=== PATIENT | female | born 1980 | race Caucasian/White ===

== ENCOUNTER 2018-10-22 20:23 | Emergency (ER) | payer OTHER, MEDICAID, SELFPAY ==
--- NOTE | 2018-10-22 20:25 | DI.RAD.S_ITS ---
PROCEDURE: XR ACUTE ABDOMEN SERIES INDICATIONS: Abdominal pain, cough, N/V, fever/chills TECHNIQUE: One view chest and two views of the abdomen were acquired. COMPARISON: None. FINDINGS: Surgical changes and devices: None. Chest: Lungs are clear. Heart size is normal. No pleural effusions. No pneumoperitoneum. Abdomen: Bowel gas pattern is normal. No suspicious calcifications. Visualized solid organ contours appear normal. Bones: No suspicious bony lesions. IMPRESSION: Nonspecific bowel gas pattern, no pneumonia found. Dictated by: Avinash Umaña M.D. on 10/22/2018 at 21:53 Approved by: Avinash Umaña M.D. on 10/22/2018 at 21:53
[2018-10-22 20:32] VITALS: BP 131/89; PULSE 105; RESP 19; TEMP 37.9; O2SAT 100; BMI 20.8
--- NOTE | 2018-10-22 20:40 | ED.NAVMDI ---
HPI - Nausea/Vomiting/Diarrhea General Chief complaint: Nausea/Vomiting/Diarrhea Stated complaint: Nausea, Vomiting Time Seen by Provider: 10/22/18 20:23 Source: patient and EMS Mode of arrival: EMS Limitations: no limitations History of Present Illness HPI Narrative: A 37-year-old female, nonsmoker presents by EMS for evaluation of nausea and vomiting over the course of the day. She has a history of type 1 diabetes and chronic kidney disease. She denies any change in her diet or diabetic regimen. She denies any fever or chills. She denies any abdominal pain. She denies exposure to bad food, recent antibiotics or international travel. She is not dizzy nor weak or lightheaded. She is relatively new to the area and majority of medical care has been performed up in [place] complaint: nausea and vomiting Onset (ago): hour(s) Description of Vomiting: food contents Description of Diarrhea: none Associated Abdominal Pain: No Relieving factors: none Exacerbating factors: none Related Data Previous Rx's Medication Instructions Recorded ondansetron 4 mg PO TID-QID PRN #10 tab 10/23/18 promethazine 25 mg [place] Q6H PRN #12 each 10/23/18 Allergies Allergy/AdvReac Type Severity Reaction Status Date / Time No Known Drug Allergies Allergy Verified 10/22/18 20:39 Review of Systems Review of Systems All systems reviewed & are unremarkable except as noted in HPI and below Constitutional Denies chills, Denies fever(s), Denies lethargy and Denies weakness Eyes Denies change in vision, Denies eye discharge, Denies irritation and Denies loss of vision ENT Ears, Nose, Mouth, and Throat: Denies change in voice, Denies neck pain and Denies sore throat Cardiovascular Denies chest pain, Denies irregular heart rhythm, Denies lightheadedness, Denies palpitations, Denies dyspnea, Denies dyspnea on exertion and Denies orthopnea Respiratory Denies cough, Denies dyspnea, Denies dyspnea on exertion and Denies wheezing Gastrointestinal Gastrointestinal: Denies abdominal pain, Denies change in bowel habits, Denies diarrhea, Reports nausea and Reports vomiting Genitourinary Denies hematuria, Denies flank pain, Denies urinary incontinence and Denies urinary urgency Musculoskeletal Denies neck pain Integumentary/Breasts Denies pruritus, Denies erythema, Denies rash and Denies wounds Neurologic Denies confusion, Denies loss of vision and Denies weakness Psychiatric Denies anxiety, Denies confusion, Denies depression, Denies homicidal ideation and Denies suicidal ideation Endocrine Denies palpitations Hematologic/Lymphatic Denies easy bruising Allergic/Immunologic Denies wheezing [facility] Social History Smoking Status: Current every day smoker Exam Narrative Exam Narrative: GENERAL: This is a well-nourished, well-developed patient, in mild distress, actively vomiting HEAD: Atraumatic. Normocephalic. No temporal or scalp tenderness. EYES: Pupils equal round and reactive. Extraocular motions intact. No scleral icterus. No injection or drainage. ENT: Nose without bleeding, purulent drainage or septal hematoma. Throat without erythema, tonsillar hypertrophy or exudate. Uvula midline. Airway patent. NECK: Trachea midline. No JVD or lymphadenopathy. Supple, nontender, no meningeal signs. CARDIOVASCULAR: Regular rate and rhythm without murmurs, gallops, or rubs. RESPIRATORY: Clear to auscultation. Breath sounds equal bilaterally. No wheezes, rales, or rhonchi. GASTROINTESTINAL: Abdomen soft, non-tender, nondistended. No hepato-splenomegaly, or palpable masses. No guarding. EXTREMITIES: No clubbing, cyanosis, or edema. No joint tenderness, effusion, or edema noted. BACK: Nontender without deformity or crepitance. No flank tenderness. NEURO: AOx3. SKIN: No rash or erythema. Initial Vital Signs Initial Vital Signs: Vital Signs Temperature 100.3 F H 10/22/18 20:32 Pulse Rate 105 H 10/22/18 20:32 Respiratory Rate 19 10/22/18 20:32 Blood Pressure 131/89 10/22/18 20:32 Pulse Oximetry 100 10/22/18 20:32 Course Orders Ordered: ED Orders 10/22/18 22:08 Urine Microscopic Stat Discontinued Medications Sodium Chloride (Normal Saline 0.9%) 1,000 mls @ 1,000 mls/hr IV BOLUS ONE Stop: 10/22/18 21:22 Last Infusion: 10/22/18 23:02 Dose: 0 mls/hr Admin: 10/22/18 21:22 Dose: 1,000 mls/hr Sodium Chloride (Normal Saline 0.9%) 1,000 mls @ 1,000 mls/hr IV BOLUS ONE Stop: 10/23/18 00:02 Last Infusion: 10/23/18 00:23 Dose: 0 mls/hr Admin: 10/22/18 23:04 Dose: 1,000 mls/hr Metoclopramide HCl (Reglan) 10 mg IV NOW ONE Stop: 10/23/18 01:04 Last Admin: 10/23/18 01:13 Dose: 10 mg Ondansetron HCl (Zofran Odt Prepack) 1 bottle MISC SEEINSTR ONE Stop: 10/23/18 01:45 Last Admin: 10/23/18 01:49 Dose: 1 bottle Reevaluation(s) Reevaluation #1: Patient experiencing some improvement after above-stated therapies. By discharge she is feeling much better Reevaluation #2: Records obtained from [place] noting a baseline creatinine of 3.6. Vital Signs - 8 hr 10/22/18 22:35 10/22/18 23:00 10/23/18 01:56 Pulse Rate 97 H 106 H 94 H Respiratory Rate 12 12 17 Blood Pressure 165/75 H Blood Pressure [Left Arm] 146/85 H 160/84 H Pulse Oximetry 98 99 98 MDM - Nausea/Vomiting/Diarrhea Lab Data Result diagrams: 10/22/18 20:50 10/22/18 20:50 Lab Results 10/22/18 10/22/18 10/22/18 Range/Units 20:28 20:50 20:50 WBC 7.0 (4.5-11.0) X10^3/uL RBC 3.79 L (4.0-5.2) X10^6/uL Hgb 11.2 L (12.0-16.0) g/dL Hct 33.1 L (36-46) % MCV 87.2 (80-100) fL MCH 29.5 (26-34) PG MCHC 33.9 (30-36) % RDW 13.8 (11.6-14.8) % Plt Count 217 (150-400) X10^3/uL Neut % (Auto) 88.1 H (50-75) % Lymph % (Auto) 4.4 L (25-40) % [place] % (Auto) 7.0 (3-14) % Eos % (Auto) 0.1 L (2-4) % Baso % (Auto) 0.4 (0-2) % Neut # (Auto) 6100 (7439-1265) /uL VBG pH (7.33-7.43) VBG pCO2 (45-50) mmHg VBG pO2 (35-45) mmHg VBG HCO3 (23-28) mmol/L VBG Total CO2 (24-29) mmol/L VBG O2 Saturation (70-75) % VBG Base Excess (0-4) mmol/L Sodium (137-145) mmol/L Potassium (3.4-5.1) mmol/L Chloride (98-107) mmol/L Carbon Dioxide (22-32) mmol/L BUN (7-17) mg/dL Creatinine (0.52-1.04) mg/dL Estimated GFR (>60) mL/min BUN/Creatinine Ratio (6-22) Glucose (70-100) mg/dL Lactate (0.7-2.1) mmol/L Calcium (8.4-10.2) mg/dL Procalcitonin (<0.5) ng/mL Urine RBC (0-5/HPF) Urine WBC (0-5/HPF) Ur Squamous Epith Cells Amorphous Sediment Urine Bacteria (None) Hyaline Casts (None) Granular Casts (None) Ur Culture Indicated? Micro UA Comment Ketones Cancelled Influenza A & B (PCR) Negative (Negative) 10/22/18 10/22/18 10/22/18 Range/Units 20:50 20:50 20:50 WBC (4.5-11.0) X10^3/uL RBC (4.0-5.2) X10^6/uL Hgb (12.0-16.0) g/dL Hct (36-46) % MCV (80-100) fL MCH (26-34) PG MCHC (30-36) % RDW (11.6-14.8) % Plt Count (150-400) X10^3/uL Neut % (Auto) (50-75) % Lymph % (Auto) (25-40) % [place] % (Auto) (3-14) % Eos % (Auto) (2-4) % Baso % (Auto) (0-2) % Neut # (Auto) (4614-6265) /uL VBG pH (7.33-7.43) VBG pCO2 (45-50) mmHg VBG pO2 (35-45) mmHg VBG HCO3 (23-28) mmol/L VBG Total CO2 (24-29) mmol/L VBG O2 Saturation (70-75) % VBG Base Excess (0-4) mmol/L Sodium 138 (137-145) mmol/L Potassium 5.1 (3.4-5.1) mmol/L Chloride 107 (98-107) mmol/L Carbon Dioxide 19 L (22-32) mmol/L BUN 38 H (7-17) mg/dL Creatinine 3.90 H (0.52-1.04) mg/dL Estimated GFR 12.9 L (>60) mL/min BUN/Creatinine Ratio 9.7 (6-22) Glucose 294 H (70-100) mg/dL Lactate 1.1 (0.7-2.1) mmol/L Calcium 8.2 L (8.4-10.2) mg/dL Procalcitonin 0.05 (<0.5) ng/mL Urine RBC (0-5/HPF) Urine WBC (0-5/HPF) Ur Squamous Epith Cells Amorphous Sediment Urine Bacteria (None) Hyaline Casts (None) Granular Casts (None) Ur Culture Indicated? Micro UA Comment Ketones Influenza A & B (PCR) (Negative) 10/22/18 10/22/18 Range/Units 21:00 22:08 WBC (4.5-11.0) X10^3/uL RBC (4.0-5.2) X10^6/uL Hgb (12.0-16.0) g/dL Hct (36-46) % MCV (80-100) fL MCH (26-34) PG MCHC (30-36) % RDW (11.6-14.8) % Plt Count (150-400) X10^3/uL Neut % (Auto) (50-75) % Lymph % (Auto) (25-40) % [place] % (Auto) (3-14) % Eos % (Auto) (2-4) % Baso % (Auto) (0-2) % Neut # (Auto) (3674-1596) /uL VBG pH 7.29 L (7.33-7.43) VBG pCO2 37.8 L (45-50) mmHg VBG pO2 26 L (35-45) mmHg VBG HCO3 18 L (23-28) mmol/L VBG Total CO2 19 L (24-29) mmol/L VBG O2 Saturation 41 L (70-75) % VBG Base Excess -8.0 L (0-4) mmol/L Sodium (137-145) mmol/L Potassium (3.4-5.1) mmol/L Chloride (98-107) mmol/L Carbon Dioxide (22-32) mmol/L BUN (7-17) mg/dL Creatinine (0.52-1.04) mg/dL Estimated GFR (>60) mL/min BUN/Creatinine Ratio (6-22) Glucose (70-100) mg/dL Lactate (0.7-2.1) mmol/L Calcium (8.4-10.2) mg/dL Procalcitonin (<0.5) ng/mL Urine RBC None seen (0-5/HPF) Urine WBC 0-1/hpf (0-5/HPF) Ur Squamous Epith Cells 0-1 /hpf Amorphous Sediment 1+ Urine Bacteria Occasional (0-1) (None) Hyaline Casts 0-1/lpf (None) Granular Casts 0-1/lpf (None) Ur Culture Indicated? Cult not indicated Micro UA Comment Not Reportable Ketones Influenza A & B (PCR) (Negative) Point of Care Testing Test Results Negative Urine Dip Bedside Urine Glucose 500 mg/dl Bedside Urine Bilirubin - Negative Bedside Urine Ketone - Negative Urine Specific [place] 1.025 Bedside Urine Occult Blood +/- Bedside Urine pH 5.5 Bedside Urine Protein ++ 100 Bedside Urine Urobilinogen - Negative Bedside Urine Nitrite - Negative Bedside Urine Leukocytes - Negative Esterase MDM Narrative Medical decision making narrative: Influenza considered but thought less likely given negative swab. DKA considered but thought less likely given lack of significant acidosis or anion gap. Pneumonia and small bowel obstruction considered but thought less likely given lack of findings on x-ray Discharge Plan Departure Patient Disposition: Home Clinical Impression: Vomiting Discharge Date/Time: 10/23/18 01:57 Interventions: ED Discharge Assessment Last Done: 10/23/18 01:56 Instructions: DI for Vomiting -- Adult Activity Restrictions/Additional Instructions: *You have been diagnosed with [ acute vomiting *What to do: *Take medications as directed *Follow up with your primary care provider in 2-3 days, call for an appointment. Let them know you were seen in the Emergency Department and that we ask that you be seen in follow up *Return to ER if you should have any new, worsening or concerning symptoms 1. Drink plenty of fluids with frequent small sips. 2. Fr the next 24 hours a clear liquid diet is advised. After that please employ a brat diet which would include bananas, rice, apples, toast. 3. Please take medications as directed. 4. Please follow-up with your doctor in the next 1-2 days. Call the office for an appointment. 5. Please return to the emergency Department for any worsening or persistent symptoms, such as increasing pain or fever. Prescriptions: New ondansetron 4 mg tablet,disintegrating 4 mg PO TID-QID PRN (Reason: nausea and vomiting) Qty: 10 RF: 0 promethazine 25 mg suppository 25 mg [place] Q6H PRN (Reason: nausea and vomiting) Qty: 12 RF: 0
[2018-10-22 21:17] LABS: Add Manual Diff / Slide Review NO; Basophils Percent Auto 0.4 % (0-2); Eosinophils Percent Auto 0.1 % (2-4); Hematocrit 33.1 % (36-46); Hemoglobin 11.2 g/dL (12.0-16.0); Lymphocytes Percent Auto 4.4 % (25-40); Mean Corpuscular HGB Conc 33.9 % (30-36); Mean Corpuscular Hemoglobin 29.5 PG (26-34); Mean Corpuscular Volume 87.2 fL (80-100); Neutrophils Absolute Auto 6100 /uL (1500-7000); Neutrophils Percent Auto 88.1 % (50-75); Platelet Count 217 X10^3/uL (150-400); Red Blood Cell Count 3.79 X10^6/uL (4.0-5.2); Red Cell Distribution Width 13.8 % (11.6-14.8)
[2018-10-22] MEDS: SODIUM CHLORIDE 0.9% 1,000 ML 1000 ML IV ×2 (21:22→23:04)
[2018-10-22 21:30] LABS: Influenza A and B by PCR Rapid Negative (Negative)
[2018-10-22 21:32] LABS: Lactate (Lactic Acid) 1.1 mmol/L (0.7-2.1)
[2018-10-22 21:36] VITALS: BP 135/71; PULSE 111; RESP 24; O2SAT 98
[2018-10-22 21:39] LABS: HCO3 VBG 18 mmol/L (23-28); Oxygen Saturation VBG 41 % (70-75); PCO2 VBG 37.8 mmHg (45-50); PO2 VBG 26 mmHg (35-45); Total CO2 VBG 19 mmol/L (24-29); pH VBG 7.29 (7.33-7.43)
[2018-10-22 21:44] LABS: Procalcitonin 0.05 ng/mL (<0.5)
[2018-10-22 21:52] LABS: BUN Creatinine Ratio 9.7 (6-22); Blood Urea Nitrogen 38 mg/dL (7-17); Calcium 8.2 mg/dL (8.4-10.2); Carbon Dioxide 19 mmol/L (22-32); Chloride 107 mmol/L (98-107); Estimated Glomerular Filt Rate 12.9 mL/min (>60); Glucose 294 mg/dL (70-100); HEMOLYSIS < 15 (0-50); Potassium 5.1 mmol/L (3.4-5.1); Sodium 138 mmol/L (137-145)
[2018-10-22 22:33] LABS: RBC Urine None Seen (0-5/HPF)
[2018-10-22 22:35] VITALS: BP 146/85; PULSE 97; RESP 12; O2SAT 98
[2018-10-22 22:41] LABS: Granular Casts Urine 0-1/LPF; Hyaline Casts Urine 0-1/LPF; Squamous Epithelial Cell Urine 0-1 /HPF; WBC Urine 0-1/HPF (0-5/HPF)
[2018-10-22 22:42] LABS: Amorphous Sediment Urine 1+; Bacteria Urine Occasional (0-1); Culture Indicated Urine Cult Not Indicated
[2018-10-22 23:00] VITALS: BP 160/84; PULSE 106; RESP 12; O2SAT 99
[2018-10-23] MEDS: METOCLOPRAMIDE 10 MG/2 ML INJ IV (01:13)
--- NOTE | 2018-10-23 01:43 | ED_ITS ---
HPI - Nausea/Vomiting/Diarrhea General Chief complaint: Nausea/Vomiting/Diarrhea Stated complaint: Nausea, Vomiting Time Seen by Provider: 10/22/18 20:23 Source: patient and EMS Mode of arrival: EMS Limitations: no limitations History of Present Illness HPI Narrative: A 37-year-old female, nonsmoker presents by EMS for evaluation of nausea and vomiting over the course of the day. She has a history of type 1 diabetes and chronic kidney disease. She denies any change in her diet or diabetic regimen. She denies any fever or chills. She denies any abdominal pain. She denies exposure to bad food, recent antibiotics or international travel. She is not dizzy nor weak or lightheaded. She is relatively new to the area and majority of medical care has been performed up in [place] complaint: nausea and vomiting Onset (ago): hour(s) Description of Vomiting: food contents Description of Diarrhea: none Associated Abdominal Pain: No Relieving factors: none Exacerbating factors: none Related Data Previous Rx's Medication Instructions Recorded ondansetron 4 mg PO TID-QID PRN #10 tab 10/23/18 promethazine 25 mg [place] Q6H PRN #12 each 10/23/18 Allergies Allergy/AdvReac Type Severity Reaction Status Date / Time No Known Drug Allergies Allergy Verified 10/22/18 20:39 Review of Systems Review of Systems All systems reviewed & are unremarkable except as noted in HPI and below Constitutional Denies chills, Denies fever(s), Denies lethargy and Denies weakness Eyes Denies change in vision, Denies eye discharge, Denies irritation and Denies loss of vision ENT Ears, Nose, Mouth, and Throat: Denies change in voice, Denies neck pain and Denies sore throat Cardiovascular Denies chest pain, Denies irregular heart rhythm, Denies lightheadedness, Denies palpitations, Denies dyspnea, Denies dyspnea on exertion and Denies orthopnea Respiratory Denies cough, Denies dyspnea, Denies dyspnea on exertion and Denies wheezing Gastrointestinal Gastrointestinal: Denies abdominal pain, Denies change in bowel habits, Denies diarrhea, Reports nausea and Reports vomiting Genitourinary Denies hematuria, Denies flank pain, Denies urinary incontinence and Denies urinary urgency Musculoskeletal Denies neck pain Integumentary/Breasts Denies pruritus, Denies erythema, Denies rash and Denies wounds Neurologic Denies confusion, Denies loss of vision and Denies weakness Psychiatric Denies anxiety, Denies confusion, Denies depression, Denies homicidal ideation and Denies suicidal ideation Endocrine Denies palpitations Hematologic/Lymphatic Denies easy bruising Allergic/Immunologic Denies wheezing [facility] Social History Smoking Status: Current every day smoker Exam Narrative Exam Narrative: GENERAL: This is a well-nourished, well-developed patient, in mild distress, actively vomiting HEAD: Atraumatic. Normocephalic. No temporal or scalp tenderness. EYES: Pupils equal round and reactive. Extraocular motions intact. No scleral icterus. No injection or drainage. ENT: Nose without bleeding, purulent drainage or septal hematoma. Throat without erythema, tonsillar hypertrophy or exudate. Uvula midline. Airway patent. NECK: Trachea midline. No JVD or lymphadenopathy. Supple, nontender, no meningeal signs. CARDIOVASCULAR: Regular rate and rhythm without murmurs, gallops, or rubs. RESPIRATORY: Clear to auscultation. Breath sounds equal bilaterally. No wheezes , rales, or rhonchi. GASTROINTESTINAL: Abdomen soft, non-tender, nondistended. No hepato-splenomegaly , or palpable masses. No guarding. EXTREMITIES: No clubbing, cyanosis, or edema. No joint tenderness, effusion, or edema noted. BACK: Nontender without deformity or crepitance. No flank tenderness. NEURO: AOx3. SKIN: No rash or erythema. Initial Vital Signs Initial Vital Signs: Vital Signs Temperature 100.3 F H 10/22/18 20:32 Pulse Rate 105 H 10/22/18 20:32 Respiratory Rate 19 10/22/18 20:32 Blood Pressure 131/89 10/22/18 20:32 Pulse Oximetry 100 10/22/18 20:32 Course Orders Ordered: ED Orders 10/22/18 22:08 Urine Microscopic Stat Discontinued Medications Sodium Chloride (Normal Saline 0.9%) 1,000 mls @ 1,000 mls/hr IV BOLUS ONE Stop: 10/22/18 21:22 Last Infusion: 10/22/18 23:02 Dose: 0 mls/hr Admin: 10/22/18 21:22 Dose: 1,000 mls/hr Sodium Chloride (Normal Saline 0.9%) 1,000 mls @ 1,000 mls/hr IV BOLUS ONE Stop: 10/23/18 00:02 Last Infusion: 10/23/18 00:23 Dose: 0 mls/hr Admin: 10/22/18 23:04 Dose: 1,000 mls/hr Metoclopramide HCl (Reglan) 10 mg IV NOW ONE Stop: 10/23/18 01:04 Last Admin: 10/23/18 01:13 Dose: 10 mg Ondansetron HCl (Zofran Odt Prepack) 1 bottle MISC SEEINSTR ONE Stop: 10/23/18 01:45 Last Admin: 10/23/18 01:49 Dose: 1 bottle Reevaluation(s) Reevaluation #1: Patient experiencing some improvement after above-stated therapies. By discharge she is feeling much better Reevaluation #2: Records obtained from [place] noting a baseline creatinine of 3.6. Vital Signs - 8 hr 10/22/18 22:35 10/22/18 23:00 10/23/18 01:56 Pulse Rate 97 H 106 H 94 H Respiratory Rate 12 12 17 Blood Pressure 165/75 H Blood Pressure [Left Arm] 146/85 H 160/84 H Pulse Oximetry 98 99 98 MDM - Nausea/Vomiting/Diarrhea Lab Data Result diagrams: 10/22/18 20:50 10/22/18 20:50 Lab Results 10/22/18 10/22/18 10/22/18 Range/Units 20:28 20:50 20:50 WBC 7.0 (4.5-11.0) X10^3/uL RBC 3.79 L (4.0-5.2) X10^6/uL Hgb 11.2 L (12.0-16.0) g/dL Hct 33.1 L (36-46) % MCV 87.2 (80-100) fL MCH 29.5 (26-34) PG MCHC 33.9 (30-36) % RDW 13.8 (11.6-14.8) % Plt Count 217 (150-400) X10^3/uL Neut % (Auto) 88.1 H (50-75) % Lymph % (Auto) 4.4 L (25-40) % [place] % (Auto) 7.0 (3-14) % Eos % (Auto) 0.1 L (2-4) % Baso % (Auto) 0.4 (0-2) % Neut # (Auto) 6100 (0823-5547) /uL VBG pH (7.33-7.43) VBG pCO2 (45-50) mmHg VBG pO2 (35-45) mmHg VBG HCO3 (23-28) mmol/L VBG Total CO2 (24-29) mmol/L VBG O2 Saturation (70-75) % VBG Base Excess (0-4) mmol/L Sodium (137-145) mmol/L Potassium (3.4-5.1) mmol/L Chloride (98-107) mmol/L Carbon Dioxide (22-32) mmol/L BUN (7-17) mg/dL Creatinine (0.52-1.04) mg/dL Estimated GFR (>60) mL/min BUN/Creatinine Ratio (6-22) Glucose (70-100) mg/dL Lactate (0.7-2.1) mmol/L Calcium (8.4-10.2) mg/dL Procalcitonin (<0.5) ng/mL Urine RBC (0-5/HPF) Urine WBC (0-5/HPF) Ur Squamous Epith Cells Amorphous Sediment Urine Bacteria (None) Hyaline Casts (None) Granular Casts (None) Ur Culture Indicated? Micro UA Comment Ketones Cancelled Influenza A & B (PCR) Negative (Negative) 10/22/18 10/22/18 10/22/18 Range/Units 20:50 20:50 20:50 WBC (4.5-11.0) X10^3/uL RBC (4.0-5.2) X10^6/uL Hgb (12.0-16.0) g/dL Hct (36-46) % MCV (80-100) fL MCH (26-34) PG MCHC (30-36) % RDW (11.6-14.8) % Plt Count (150-400) X10^3/uL Neut % (Auto) (50-75) % Lymph % (Auto) (25-40) % [place] % (Auto) (3-14) % Eos % (Auto) (2-4) % Baso % (Auto) (0-2) % Neut # (Auto) (1853-8972) /uL VBG pH (7.33-7.43) VBG pCO2 (45-50) mmHg VBG pO2 (35-45) mmHg VBG HCO3 (23-28) mmol/L VBG Total CO2 (24-29) mmol/L VBG O2 Saturation (70-75) % VBG Base Excess (0-4) mmol/L Sodium 138 (137-145) mmol/L Potassium 5.1 (3.4-5.1) mmol/L Chloride 107 (98-107) mmol/L Carbon Dioxide 19 L (22-32) mmol/L BUN 38 H (7-17) mg/dL Creatinine 3.90 H (0.52-1.04) mg/dL Estimated GFR 12.9 L (>60) mL/min BUN/Creatinine Ratio 9.7 (6-22) Glucose 294 H (70-100) mg/dL Lactate 1.1 (0.7-2.1) mmol/L Calcium 8.2 L (8.4-10.2) mg/dL Procalcitonin 0.05 (<0.5) ng/mL Urine RBC (0-5/HPF) Urine WBC (0-5/HPF) Ur Squamous Epith Cells Amorphous Sediment Urine Bacteria (None) Hyaline Casts (None) Granular Casts (None) Ur Culture Indicated? Micro UA Comment Ketones Influenza A & B (PCR) (Negative) 10/22/18 10/22/18 Range/Units 21:00 22:08 WBC (4.5-11.0) X10^3/uL RBC (4.0-5.2) X10^6/uL Hgb (12.0-16.0) g/dL Hct (36-46) % MCV (80-100) fL MCH (26-34) PG MCHC (30-36) % RDW (11.6-14.8) % Plt Count (150-400) X10^3/uL Neut % (Auto) (50-75) % Lymph % (Auto) (25-40) % [place] % (Auto) (3-14) % Eos % (Auto) (2-4) % Baso % (Auto) (0-2) % Neut # (Auto) (2462-6107) /uL VBG pH 7.29 L (7.33-7.43) VBG pCO2 37.8 L (45-50) mmHg VBG pO2 26 L (35-45) mmHg VBG HCO3 18 L (23-28) mmol/L VBG Total CO2 19 L (24-29) mmol/L VBG O2 Saturation 41 L (70-75) % VBG Base Excess -8.0 L (0-4) mmol/L Sodium (137-145) mmol/L Potassium (3.4-5.1) mmol/L Chloride (98-107) mmol/L Carbon Dioxide (22-32) mmol/L BUN (7-17) mg/dL Creatinine (0.52-1.04) mg/dL Estimated GFR (>60) mL/min BUN/Creatinine Ratio (6-22) Glucose (70-100) mg/dL Lactate (0.7-2.1) mmol/L Calcium (8.4-10.2) mg/dL Procalcitonin (<0.5) ng/mL Urine RBC None seen (0-5/HPF) Urine WBC 0-1/hpf (0-5/HPF) Ur Squamous Epith Cells 0-1 /hpf Amorphous Sediment 1+ Urine Bacteria Occasional (0-1) (None) Hyaline Casts 0-1/lpf (None) Granular Casts 0-1/lpf (None) Ur Culture Indicated? Cult not indicated Micro UA Comment Not Reportable Ketones Influenza A & B (PCR) (Negative) Point of Care Testing Test Results Negative Urine Dip Bedside Urine Glucose 500 mg/dl Bedside Urine Bilirubin - Negative Bedside Urine Ketone - Negative Urine Specific [place] 1.025 Bedside Urine Occult Blood +/- Bedside Urine pH 5.5 Bedside Urine Protein ++ 100 Bedside Urine Urobilinogen - Negative Bedside Urine Nitrite - Negative Bedside Urine Leukocytes - Negative Esterase MDM Narrative Medical decision making narrative: Influenza considered but thought less likely given negative swab. DKA considered but thought less likely given lack of significant acidosis or anion gap. Pneumonia and small bowel obstruction considered but thought less likely given lack of findings on x-ray Discharge Plan Departure Patient Disposition: Home Clinical Impression: Vomiting Discharge Date/Time: 10/23/18 01:57 Interventions: ED Discharge Assessment Last Done: 10/23/18 01:56 Instructions: DI for Vomiting -- Adult Activity Restrictions/Additional Instructions: *You have been diagnosed with [ acute vomiting *What to do: *Take medications as directed *Follow up with your primary care provider in 2-3 days, call for an appointment. Let them know you were seen in the Emergency Department and that we ask that you be seen in follow up *Return to ER if you should have any new, worsening or concerning symptoms 1. Drink plenty of fluids with frequent small sips. 2. Fr the next 24 hours a clear liquid diet is advised. After that please employ a brat diet which would include bananas, rice, apples, toast. 3. Please take medications as directed. 4. Please follow-up with your doctor in the next 1-2 days. Call the office for an appointment. 5. Please return to the emergency Department for any worsening or persistent symptoms, such as increasing pain or fever. Prescriptions: New ondansetron 4 mg tablet,disintegrating 4 mg PO TID-QID PRN (Reason: nausea and vomiting) Qty: 10 RF: 0 promethazine 25 mg suppository 25 mg [place] Q6H PRN (Reason: nausea and vomiting) Qty: 12 RF: 0
[2018-10-23] MEDS: ONDANSETRON 4 MG ODT PREPACK 1 BOTTLE MISC (01:49)
[2018-10-23 01:56] VITALS: BP 165/75; PULSE 94; RESP 17; O2SAT 98
== END 2018-10-23 01:57 | disposition home or self-care (01) ==
PROVIDERS: Emergency Provider Emergency Medicine
DX: R11.10 Vomiting, unspecified (principal)
CPT/HCPCS: 36415; 74022; 80048; 81003; 81015; 81025; 82805; 83605; 84145; 85025; 87040; 87400; 96361; 96374; 99283; 99284; J2765

== ENCOUNTER 2018-11-09 16:03 | Emergency (ER) | payer OTHER, MEDICAID, SELFPAY ==
[2018-11-09 16:08] VITALS: BP 169/96; PULSE 92; RESP 16; TEMP 37.2; O2SAT 100; BMI 20.1
--- NOTE | 2018-11-09 16:23 | PC.NURSE ---
hx of dm, stage v renal disease, coughing for 3 weeks, pain right lower ribs the last 2 days, hurts to take deep breath, movement. denies injuries/mvc. denies fever, vomiting.
--- NOTE | 2018-11-09 16:26 | DI.RAD.S_ITS ---
PROCEDURE: XR CHEST 2V INDICATIONS: coughing for 3 weeks, now with right lower rib pain, hurts w TECHNIQUE: 2 views of the chest were acquired. COMPARISON: [facility], , CHEST 2VW, 12/14/2006, 9:52. FINDINGS: Surgical changes and devices: None. Lungs and pleura: No pleural effusions or pneumothorax. Lungs are clear. Mediastinum: Mediastinal contours are normal. Heart size is normal. Bones and chest wall: No suspicious bony abnormalities. Soft tissues appear unremarkable. IMPRESSION: Negative chest. No acute cardiopulmonary process is evident. Dictated by: Lincoln Small M.D. on 11/09/2018 at 15:45 Approved by: Lincoln Small M.D. on 11/09/2018 at 16:04
--- NOTE | 2018-11-09 16:36 | ED_ITS ---
HPI - Back Pain/Injury General Chief Complaint: Back Pain/Injury Stated Complaint: RT SIDED RIB PAIN Time Seen by Provider: 11/09/18 16:05 Source: patient Mode of arrival: ambulatory Limitations: no limitations History of Present Illness HPI Narrative: 37-year-old female nonsmoker with history diabetes presents for evaluation of severe right-sided rib pain for the past 2 days. She states she has severe sharp and stabbing pain with any motion as well as deep breath. She denies any recent injury or shortness of breath. She states it hurts to take a deep breath but she does not feel short of breath. She was seen few weeks ago for persistent nausea and vomiting but did not develop the pain until just a few days ago. She denies any activities outside the normal. MD Complaint: back pain and other Onset (ago): day(s) Duration: constant Similar Symptoms Previously: No Severity: severe Quality: burning and sharp Radiation: none Relieving factors: immobilization Exacerbating factors: movement and deep breaths Associated symptoms: denies other symptoms Related Data Home Medications Medication Instructions Recorded Confirmed albuterol sulfate [ProAir HFA] 11/09/18 insulin glargine [Lantus U-100 11/09/18 Insulin] insulin lispro [Humalog U-100 11/09/18 Insulin] Previous Rx's Medication Instructions Recorded ondansetron 4 mg PO TID-QID PRN #10 tab 10/23/18 promethazine 25 mg MI Q6H PRN #12 each 10/23/18 hydrocodone-acetaminophen 1 tab PO Q4-6H PRN #10 tab 11/09/18 lidocaine 1 patch TOP DAILY #15 each 11/09/18 methocarbamol [Robaxin] 500 mg PO QID PRN #20 tab 11/09/18 Allergies Allergy/AdvReac Type Severity Reaction Status Date / Time No Known Drug Allergies Allergy Verified 10/22/18 20:39 Review of Systems Constitutional Denies chills, Denies fever(s), Denies lethargy and Denies weakness Eyes Denies change in vision, Denies eye discharge, Denies irritation and Denies loss of vision ENT Ears, Nose, Mouth, and Throat: Denies change in voice, Denies neck pain and Denies sore throat Cardiovascular Denies chest pain, Denies irregular heart rhythm, Denies lightheadedness, Denies palpitations, Denies dyspnea, Denies dyspnea on exertion and Denies orthopnea Respiratory Denies cough, Reports pain on inspiration, Reports pain with cough, Denies dyspnea, Denies dyspnea on exertion and Denies wheezing Gastrointestinal Gastrointestinal: Denies abdominal pain, Denies change in bowel habits, Denies diarrhea, Denies nausea and Denies vomiting Genitourinary Denies hematuria, Denies flank pain, Denies urinary incontinence and Denies urinary urgency Musculoskeletal Denies neck pain Integumentary/Breasts Denies pruritus, Denies erythema, Denies rash and Denies wounds Neurologic Denies confusion, Denies loss of vision and Denies weakness Psychiatric Denies anxiety, Denies confusion, Denies depression, Denies homicidal ideation and Denies suicidal ideation Endocrine Denies palpitations Hematologic/Lymphatic Denies easy bruising Allergic/Immunologic Denies wheezing [facility] Social History Smoking Status: Current every day smoker Exam Narrative Exam Narrative: GEN: 37-year-old female, obviously uncomfortable, clutching her right-sided ribs EYES: Pupils are equal, round, and reactive to light and accommodation. Extraoccular muscles are intact bilaterally. There is no subconjunctival hemorrhage or exudate. CHEST: Lungs are clear to auscultation bilaterally and free of wheezes, rales, or rhonchi. Heart rate is regular rhythm, there are no murmurs, clicks, rubs, or gallops. Sharp / stabbing R sided rib pain, worse with palpation ABD: Abdomen is soft and nontender. There is no guarding or rebound. Bowel sounds are normal in all 4 quadrants. There is no mass or organomegaly. EXT: Full painless ROM of all extremities with no loss of sensation or strength. SKIN: Warm, pink, and dry. No erythema or rash Initial Vital Signs Initial Vital Signs: Vital Signs Temperature 99.0 F 11/09/18 16:08 Pulse Rate 92 H 11/09/18 16:08 Respiratory Rate 16 11/09/18 16:08 Blood Pressure 169/96 H 11/09/18 16:08 Pulse Oximetry 100 11/09/18 16:08 Course Orders Ordered: ED Orders 11/09/18 16:26 XR chest 2V Stat Vital Signs - 8 hr 11/09/18 16:08 11/09/18 17:11 Temperature 99.0 F Pulse Rate 92 H 85 Respiratory Rate 16 18 Blood Pressure 169/96 H Blood Pressure [Left Arm] 143/93 H Pulse Oximetry 100 99 Discharge Plan Departure Patient Disposition: Home Clinical Impression: Rib pain on right side Instructions: DI for Atypical Chest Pain Activity Restrictions/Additional Instructions: *You have been diagnosed with [ atypical right-sided chest wall pain ] *What to do: *Take medications as directed *Follow up with your primary care provider in 2-3 days, call for an appointment. Let them know you were seen in the Emergency Department and that we ask that you be seen in follow up *Return to ER if you should have any new, worsening or concerning symptoms Prescriptions: New methocarbamol [Robaxin] 500 mg tablet 500 mg PO QID PRN (Reason: Spasm) Qty: 20 RF: 0 hydrocodone-acetaminophen 5-325 mg tablet 1 tab PO Q4-6H PRN (Reason: pain) Qty: 10 RF: 0 lidocaine 5 % adhesive patch,medicated 1 patch TOP DAILY Qty: 15 RF: 0 No Action ondansetron 4 mg tablet,disintegrating 4 mg PO TID-QID PRN (Reason: nausea and vomiting) Qty: 10 RF: 0 promethazine 25 mg suppository 25 mg MI Q6H PRN (Reason: nausea and vomiting) Qty: 12 RF: 0 insulin glargine [Lantus U-100 Insulin] 100 unit/mL solution RF: 0 insulin lispro [Humalog U-100 Insulin] 100 unit/mL solution RF: 0 albuterol sulfate [ProAir HFA] 90 mcg/actuation HFA aerosol inhaler RF: 0
--- NOTE | 2018-11-09 16:57 | PC.NURSE ---
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 denies injuries, coughing or vomiting. hx premature at 35 weeks, pt with add, takes adderall daily.
[2018-11-09 17:11] VITALS: BP 143/93; PULSE 85; RESP 18; O2SAT 99
--- NOTE | 2018-11-09 17:18 | PC.NURSE ---
standby for exam of right side of chest with provider
== END 2018-11-09 17:38 | disposition home or self-care (01) ==
PROVIDERS: Emergency Provider Emergency Medicine
DX: R07.81 Pleurodynia (principal)
CPT/HCPCS: 71046; 99282; 99283

== ENCOUNTER → 2018-11-28 16:13 | Outpatient (CLI) | payer OTHER, MEDICAID, SELFPAY ==
--- NOTE | 2018-11-28 | DI.US.S_ITS ---
PROCEDURE: US RENAL COMPLETE INDICATIONS: RENAL INSUFFICIENCY TECHNIQUE: Real-time scanning was performed of the kidneys and bladder, with image documentation. COMPARISON: [facility], CR, XR ACUTE ABDOMEN SERIES, 10/22/2018, 20:43. FINDINGS: Kidneys: Kidneys are normal in size. The kidneys demonstrate overall increased echogenicity, which is consistent with the given history of medical renal disease. Right kidney measures 9.8 cm long; left kidney measures 10.5 cm long. Right renal cortical thickness is 1 cm; left renal cortical thickness is 0.9 cm. Renal cortical echotexture is normal. No hydronephrosis or nephrolithiasis. No suspicious solid mass lesions. However, both kidneys demonstrate a nodular contour, which is attributed to lobulation. Bladder: Pre-void bladder volume is 270 mL. Post-void residual is less than 1 mL. Pre-void images demonstrate no intraluminal masses or stones. On pre-void images, neither of the ureteral jets are noted with color Doppler interrogation. (Of note, ureteral jets may not be detectable in up to 25% of cases due to insufficient differences in specific gravity between ureteral and bladder urine). Miscellaneous: No free pelvic fluid. IMPRESSION: No hydronephrosis or other acute abnormality can be seen. Dictated by: Bear Jenkins M.D. on 11/28/2018 at 17:56 Approved by: Bear Jenkins M.D. on 11/28/2018 at 17:58
== END ==
PROVIDERS: Visit Provider Physician Assistant Medical
DX: N28.9 Disorder of kidney and ureter, unspecified (principal)
CPT/HCPCS: 76770

== ENCOUNTER 2019-11-17 16:20 | Emergency (ER) | payer OTHER, MEDICAID, SELFPAY ==
[2019-11-17 16:28] VITALS: BP 193/65; PULSE 85; RESP 18; TEMP 36.5; O2SAT 98; BMI 20.1
[2019-11-17 17:57] LABS: Alanine Aminotransferase 22 IU/L (<35); Albumin 3.5 g/dL (3.5-5.0); Albumin Globulin Ratio 1.3 (1.0-2.8); Alkaline Phosphatase 135 U/L (38-126); Aspartate Aminotransferase 23 IU/L (14-36); BUN Creatinine Ratio 7.7 (6-22); Bilirubin Total 0.3 mg/dL (0.2-1.3); Blood Urea Nitrogen 60 mg/dL (7-17); Calcium 6.7 mg/dL (8.4-10.2); Carbon Dioxide 15 mmol/L (22-32); Chloride 97 mmol/L (98-107); Estimated Glomerular Filt Rate 5.8 mL/min (>60); Globulin 2.7 g/dL (1.7-4.1); HEMOLYSIS < 15 (0-50); Potassium 4.2 mmol/L (3.4-5.1); Sodium 127 mmol/L (137-145); Total Protein 6.2 g/dL (6.3-8.2)
[2019-11-17 18:08] LABS: Glucose 668 mg/dL (70-100)
--- NOTE | 2019-11-17 18:20 | DI.RAD.S_ITS ---
PROCEDURE: XR CHEST 2V INDICATIONS: elevated glucose, DKA? TECHNIQUE: 2 views of the chest were acquired. COMPARISON: [facility], , XR CHEST 2V, 11/09/2018, 16:27. FINDINGS: Surgical changes and devices: None. Lungs and pleura: Lungs are clear. No pleural effusions or pneumothorax. Mediastinum: Mediastinal contours are normal. Heart size is normal. Bones and chest wall: No suspicious bony abnormalities. Soft tissues appear unremarkable. IMPRESSION: No acute pulmonary process. Dictated by: Doris Bautista M.D. on 11/17/2019 at 19:25 Approved by: Doris Bautista M.D. on 11/17/2019 at 19:26
[2019-11-17 18:32] LABS: Add Manual Diff / Slide Review NO; Basophils Absolute Auto 100 /uL (0-100); Basophils Percent Auto 1.1 % (0-2); Eosinophils Absolute Auto 200 /uL (0-450); Eosinophils Percent Auto 4.4 % (2-4); Hematocrit 26.9 % (36-46); Hemoglobin 8.7 g/dL (12.0-16.0); Lymphocytes Absolute Auto 1400 /uL (1100-4500); Lymphocytes Percent Auto 24.9 % (25-40); Mean Corpuscular HGB Conc 32.4 % (30-36); Mean Corpuscular Hemoglobin 29.1 PG (26-34); Monocytes Absolute Auto 500 /uL (0-900); Monocytes Percent Auto 8.6 % (3-14); Neutrophils Absolute Auto 3400 /uL (1500-7000); Platelet Count 192 X10^3/uL (150-400); Red Blood Cell Count 2.99 X10^6/uL (4.0-5.2); Red Cell Distribution Width 13.8 % (11.6-14.8); White Blood Cell Count 5.6 X10^3/uL (4.5-11.0)
[2019-11-17 18:33] LABS: Lipase 221 U/L (23-300); Magnesium 2.2 mg/dL (1.6-2.3); Phosphorous 6.7 mg/dL (2.5-4.5)
[2019-11-17 18:36] LABS: Ketones (Beta-Hydroxybutyrate) 0.19 mmol/L (<0.27)
[2019-11-17 18:54] LABS: HCO3 VBG 16 mmol/L (23-28); PCO2 VBG 38.4 mmHg (45-50); PO2 VBG 46 mmHg (35-45)
[2019-11-17 18:55] LABS: Oxygen Saturation VBG 73 % (70-75); Total CO2 VBG 17 mmol/L (24-29)
[2019-11-17 18:56] LABS: pH VBG 7.22 (7.33-7.43)
[2019-11-17 19:04] LABS: Bacteria Urine Many (>30); Culture Indicated Urine Cult Not Indicated; RBC Urine 0-1/HPF (0-5/HPF); Squamous Epithelial Cell Urine 5-10 /HPF (0-5/HPF); Transitional Epi Cells Urine 0-1/HPF (0-5/HPF); WBC Urine 1-5/HPF (0-5/HPF)
[2019-11-17] MEDS: SODIUM CHLORIDE 0.9% 1,000 ML 1000 ML IV ×2 (19:06→20:23)
--- NOTE | 2019-11-17 19:26 | PC.NURSE ---
IV placed by previous shift
[2019-11-17 20:03] LABS: Albumin 3.8 g/dL (3.5-5.0); Carbon Dioxide 15 mmol/L (22-32); HEMOLYSIS < 15 (0-50); Sodium 130 mmol/L (137-145)
[2019-11-17 20:38] LABS: Blood Urea Nitrogen 60 mg/dL (7-17); Chloride 104 mmol/L (98-107); Potassium 3.6 mmol/L (3.4-5.1)
[2019-11-17 20:40] LABS: Glucose 433 mg/dL (70-100)
[2019-11-17 20:41] LABS: Aspartate Aminotransferase 18 IU/L (14-36); Bilirubin Total 0.2 mg/dL (0.2-1.3)
[2019-11-17 20:42] LABS: Alanine Aminotransferase 20 IU/L (<35); Alkaline Phosphatase 118 U/L (38-126); Total Protein 5.8 g/dL (6.3-8.2)
[2019-11-17 20:43] LABS: Albumin Globulin Ratio 1.9 (1.0-2.8)
[2019-11-17 20:44] LABS: Calcium 6.4 mg/dL (8.4-10.2)
[2019-11-17 21:05] VITALS: BP 187/98; PULSE 72; RESP 16; O2SAT 100
--- NOTE | 2019-11-17 23:54 | ED.RECABL ---
HPI - Recheck/Abnormal Lab/Rx <RONNELL Hendricks - Last Filed: 11/18/19 00:36> General Chief Complaint: Recheck/Abnormal Lab/Rx Stated Complaint: CALCIUM LEVEL IS LOW NEEDS AND EKG Time Seen by Provider: 11/17/19 16:51 Source: patient Mode of arrival: Ambulatory Limitations: no limitations History of Present Illness HPI narrative: This is a 38-year-old female, smoker, who presents to ED in requesting for calcium level check and EKG test. Patient reports she is a type 1 diabetes since age 11 and uses insulin. Patient has chronic stage 4 kidney disease and hypertension due to the diabetes. Her fabric lay out worker increased lisinopril dose from 5 mg to 10 mg 2 days ago and had checked her chemistry for potassium and kidney function and she received a phone call yesterday to recheck calcium level and EKG due to hypocalcemia. Patient's fabric lay out worker and PCP and her left was drawn at [facility] in [place] is not sure of her lab values. Patient denies chest pain, breathing difficulty, muscle contractions, recent illness, fever, chills, nausea or vomiting. Patient has occasional difficulty breathing but not at this time. Patient states her blood sugar has been running a bit high at times and has been compliant with her insulin. Patient states she has an appointment with education program coordinator this coming week Wednesday and with her PCP on . Related Data Home Medications Medication Instructions Recorded Confirmed albuterol sulfate [ProAir HFA] 1 puff INHALATION DIRECTED 11/09/18 11/17/19 insulin glargine [Lantus U-100 0 unit SUBCUT DIRECTED 11/09/18 Insulin] insulin lispro [Humalog U-100 0 unit SUBCUT DIRECTED 11/09/18 Insulin] brimonidine-timolol [Combigan] 1 drp OPHTHALMIC (EYE) BID 11/17/19 11/17/19 lisinopril 10 mg PO DAILY 11/17/19 11/17/19 Previous Rx's Medication Instructions Recorded lidocaine 1 patch TOP DAILY #15 each 11/09/18 Allergies Allergy/AdvReac Type Severity Reaction Status Date / Time No Known Drug Allergies Allergy Verified 11/17/19 16:28 Review of Systems <RONNELL Hendricks - Last Filed: 11/18/19 00:36> Review of Systems Narrative: General: Denies fever, chills, fatigue, malaise, sweats. HEENT: Denies sinus pain, ear pain, sore throat, difficulty swallowing, dizziness. Respiratory: Denies dyspnea, cough, wheezing, hemoptysis, sputum. Occasionally difficulty with catching breath. Cardiovascular: Denies chest pain, palpitations, orthopnea, edema. Gastrointestinal: Denies nausea, vomiting, abdominal pain, diarrhea, constipation, melena. : Denies dysuria, frequency, incontinence, hematuria, urinary retention. Musculoskeletal: Denies weakness, joint pain or bony pain. Skin: Denies rash, skin lesions, or other. Neurologic: Denies weakness, headache, numbness, change in speech, confusion, seizures, incoordination. Psychiatric: No concerning psychosocial issues. 12-point review of systems is negative except for those stated above. Patient History <RONNELL Hendricks - Last Filed: 11/18/19 00:36> Medical History (Updated 11/18/19 @ 00:03 by RONNELL Hendricks) Type 1 diabetes (Acute) Surgical History (Updated 11/18/19 @ 00:03 by RONNELL Hendricks) H/O eye surgery (Acute) Social History Smoking Status: Current every day smoker Smoking Status: Current every day smoker Substance Use Type: marijuana Exam <RONNELL Hendricks - Last Filed: 11/18/19 00:36> Narrative Exam Narrative: GEN: Alert, oriented x 3, well appearing and nourished but pale. No acute distress. Head: Normal cephalic, atraumatic. No scalp or temporal tenderness, palpable mass or rash. EYES: Pupils are equal, round, and reactive to light and accommodation. Extraocular muscles are intact bilaterally. There is no subconjunctival hemorrhage, exudate and sclera non-icteric. ENT: Bilateral auditory canals and tympanic membranes clear. Hearing grossly intact. Nose without bleeding, purulent discharge or deviation. Facial sinuses nontender to palpate. Mucous membrane moist, no mucosal lesion. Throat without erythema, tonsillar hypertrophy or exudate. Uvula in midline, airway patent. Neck: Trachea in midline. No JVD, non-tender without lymphadenopathy. No masses or thyroid megaly. Supple, non-tender and no meningeal signs. CARDIAC: Normal regular rate and rhythm without murmurs, gallops, or rubs. No chest wall tenderness. No peripheral edema, cyanosis or pallor. Capillary refill is less than 2 seconds. RESPIRATORY: Lungs are clear to auscultate bilaterally. No cough, wheezes, rales, or rhonchi. No stridor, respiratory distress, increase work of breathing, or accessary muscle used. ABD: Abdomen soft, nontender and non-distended. No guarding or rebound tenderness to palpate. Bowel sounds are normal in all 4 quadrants. There is no palpable masses or organomegaly. EXT: Full painless ROM of all extremities with no loss of sensation, strength, effusion or edema. SKIN: Warm, dry, normal color for patient. No erythema, lesions or rash over visible areas. BACK: Nontender without deformity or crepitance. No flank tenderness. NEUROLOGICAL: Alert and oriented to place, time and person. Sensation and motor function intact bilaterally. No facial droops, dysphasia. PSYCHIATRIC: Good judgement and reason, without hallucinations, abnormal affect or abnormal behaviors during the examination. Initial Vital Signs Initial Vital Signs: Vital Signs Temperature 97.7 F 11/17/19 16:28 Pulse Rate 85 11/17/19 16:28 Respiratory Rate 18 11/17/19 16:28 Blood Pressure 193/65 H 11/17/19 16:28 Pulse Oximetry 98 11/17/19 16:28 <Saturnino Mackenzie DO - Last Filed: 11/18/19 01:34> Initial Vital Signs Initial Vital Signs: Vital Signs Temperature 97.7 F 11/17/19 16:28 Pulse Rate 85 11/17/19 16:28 Respiratory Rate 18 11/17/19 16:28 Blood Pressure 193/65 H 11/17/19 16:28 Pulse Oximetry 98 11/17/19 16:28 Scores <RONNELL Hendricks - Last Filed: 11/18/19 00:36> GCS [place] coma scale eye opening: Spontaneous Ga coma scale verbal response: Orientated Ga coma scale motor response: Obey commands Ga coma scale total score: 15 Course <RONNELL Hendricks Last Filed: 11/18/19 00:36> Orders Ordered: ED Orders 11/17/19 17:30 CMP [Comprehensive Metabolic Panel] Stat Complete Blood Count AUTO DIFF Stat Ketones (Beta-Hydroxybutyrate) Stat Lipase Stat Magnesium Stat Phosphorous Stat 11/17/19 18:18 Arterial Blood Gas Stat 11/17/19 18:20 XR chest 2V Stat 11/17/19 18:40 Venous Blood Gas Stat 11/17/19 18:45 Blood Culture Stat 11/17/19 18:50 Urine Microscopic Stat 11/17/19 20:15 Comprehensive Metabolic Panel Stat Discontinued Medications Sodium Chloride (Normal Saline 0.9%) 1,000 mls @ 1,000 mls/hr IV BOLUS ONE Stop: 11/17/19 19:17 Last Infusion: 11/17/19 20:23 Dose: 0 mls/hr Documented by: Admin: 11/17/19 19:06 Dose: 1,000 mls/hr Documented by: NOE Sodium Chloride (Normal Saline 0.9%) 1,000 mls @ 1,000 mls/hr IV BOLUS ONE Stop: 11/17/19 21:09 Last Infusion: 11/17/19 21:19 Dose: 0 mls/hr Documented by: Admin: 11/17/19 20:23 Dose: 1,000 mls/hr Documented by: GENARO Vital Signs Vital signs: Vital Signs - 8 hr 11/17/19 21:05 Pulse Rate 72 Respiratory Rate 16 Blood Pressure [Left Arm] 187/98 H Pulse Oximetry 100 <Saturnino Mackenzie, - Last Filed: 11/18/19 01:34> Orders Ordered: ED Orders 11/17/19 17:30 CMP [Comprehensive Metabolic Panel] Stat Complete Blood Count AUTO DIFF Stat Ketones (Beta-Hydroxybutyrate) Stat Lipase Stat Magnesium Stat Phosphorous Stat 11/17/19 18:18 Arterial Blood Gas Stat 11/17/19 18:20 XR chest 2V Stat 11/17/19 18:40 Venous Blood Gas Stat 11/17/19 18:45 Blood Culture Stat 11/17/19 18:50 Urine Microscopic Stat 11/17/19 20:15 Comprehensive Metabolic Panel Stat Discontinued Medications Sodium Chloride (Normal Saline 0.9%) 1,000 mls @ 1,000 mls/hr IV BOLUS ONE Stop: 11/17/19 19:17 Last Infusion: 11/17/19 20:23 Dose: 0 mls/hr Documented by: Admin: 11/17/19 19:06 Dose: 1,000 mls/hr Documented by: NOE Sodium Chloride (Normal Saline 0.9%) 1,000 mls @ 1,000 mls/hr IV BOLUS ONE Stop: 11/17/19 21:09 Last Infusion: 11/17/19 21:19 Dose: 0 mls/hr Documented by: Admin: 11/17/19 20:23 Dose: 1,000 mls/hr Documented by: GENARO Vital Signs Vital signs: Vital Signs - 8 hr 11/17/19 21:05 Pulse Rate 72 Respiratory Rate 16 Blood Pressure [Left Arm] 187/98 H Pulse Oximetry 100 MDM - Recheck/Abnormal Lab/Rx <RONNELL Hendricks - Last Filed: 11/18/19 00:36> Differential Diagnosis Differential diagnosis: Likely other (Encounter for lab recheck, hypocalcemia, DKA, chronic kidney disease) Medical Records Attestation: I reviewed the patient's medical records. Lab Data Attestation: I reviewed the patient's lab results. Result diagrams: 11/17/19 17:30 11/17/19 20:15 Labs: Lab Results 11/17/19 11/17/19 11/17/19 Range/Units 17:30 17:30 17:30 WBC 5.6 (4.5-11.0) X10^3/uL RBC 2.99 L (4.0-5.2) X10^6/uL Hgb 8.7 L (12.0-16.0) g/dL Hct 26.9 L (36-46) % MCV 90.0 (80-100) fL MCH 29.1 (26-34) PG MCHC 32.4 (30-36) % RDW 13.8 (11.6-14.8) % Plt Count 192 (150-400) X10^3/uL Neut % (Auto) 61.0 (50-75) % Lymph % (Auto) 24.9 L (25-40) % [place] % (Auto) 8.6 (3-14) % Eos % (Auto) 4.4 H (2-4) % Baso % (Auto) 1.1 (0-2) % Neut # (Auto) 3400 (5014-9365) /uL Lymph # (Auto) 1400 (9679-1957) /uL [place] # (Auto) 500 (0-900) /uL Eos # (Auto) 200 (0-450) /uL Baso # (Auto) 100 (0-100) /uL VBG pH (7.33-7.43) VBG pCO2 (45-50) mmHg VBG pO2 (35-45) mmHg VBG HCO3 (23-28) mmol/L VBG Total CO2 (24-29) mmol/L VBG O2 Saturation (70-75) % VBG Base Excess (0-4) mmol/L Sodium 127 L (137-145) mmol/L Potassium 4.2 (3.4-5.1) mmol/L Chloride 97 L (98-107) mmol/L Carbon Dioxide 15 L (22-32) mmol/L BUN 60 H (7-17) mg/dL Creatinine 7.80 H* (0.52-1.04) mg/dL Estimated GFR 5.8 L (>60) mL/min BUN/Creatinine Ratio 7.7 (6-22) Glucose 668 H* (70-100) mg/dL Calcium 6.7 L (8.4-10.2) mg/dL Phosphorus 6.7 H (2.5-4.5) mg/dL Magnesium 2.2 (1.6-2.3) mg/dL Total Bilirubin 0.3 (0.2-1.3) mg/dL AST 23 (14-36) IU/L ALT 22 (<35) IU/L Alkaline Phosphatase 135 H (38-126) U/L Total Protein 6.2 L (6.3-8.2) g/dL Albumin 3.5 (3.5-5.0) g/dL Globulin 2.7 (1.7-4.1) g/dL Albumin/Globulin Ratio 1.3 (1.0-2.8) Lipase 221 (23-300) U/L Urine RBC (0-5/HPF) Urine WBC (0-5/HPF) Ur Squamous Epith Cells (0-5/HPF) Ur Transition Epith Cell (0-5/HPF) Urine Bacteria (None) Ur Culture Indicated? Ketones 0.19 (<0.27) mmol/L 11/17/19 11/17/19 11/17/19 Range/Units 18:40 18:50 20:15 WBC (4.5-11.0) X10^3/uL RBC (4.0-5.2) X10^6/uL Hgb (12.0-16.0) g/dL Hct (36-46) % MCV (80-100) fL MCH (26-34) PG MCHC (30-36) % RDW (11.6-14.8) % Plt Count (150-400) X10^3/uL Neut % (Auto) (50-75) % Lymph % (Auto) (25-40) % [place] % (Auto) (3-14) % Eos % (Auto) (2-4) % Baso % (Auto) (0-2) % Neut # (Auto) (8619-4551) /uL Lymph # (Auto) (4377-5075) /uL [place] # (Auto) (0-900) /uL Eos # (Auto) (0-450) /uL Baso # (Auto) (0-100) /uL VBG pH 7.22 L (7.33-7.43) VBG pCO2 38.4 L (45-50) mmHg VBG pO2 46 H (35-45) mmHg VBG HCO3 16 L (23-28) mmol/L VBG Total CO2 17 L (24-29) mmol/L VBG O2 Saturation 73 (70-75) % VBG Base Excess -12.0 L (0-4) mmol/L Sodium 130 L (137-145) mmol/L Potassium 3.6 (3.4-5.1) mmol/L Chloride 104 (98-107) mmol/L Carbon Dioxide 15 L (22-32) mmol/L BUN 60 H (7-17) mg/dL Creatinine 7.50 H* (0.52-1.04) mg/dL Estimated GFR 6.0 L (>60) mL/min BUN/Creatinine Ratio 8.0 (6-22) Glucose 433 H D (70-100) mg/dL Calcium 6.4 L* (8.4-10.2) mg/dL Phosphorus (2.5-4.5) mg/dL Magnesium (1.6-2.3) mg/dL Total Bilirubin 0.2 (0.2-1.3) mg/dL AST 18 (14-36) IU/L ALT 20 (<35) IU/L Alkaline Phosphatase 118 (38-126) U/L Total Protein 5.8 L (6.3-8.2) g/dL Albumin 3.8 (3.5-5.0) g/dL Globulin 2.0 (1.7-4.1) g/dL Albumin/Globulin Ratio 1.9 (1.0-2.8) Lipase (23-300) U/L Urine RBC 0-1/hpf (0-5/HPF) Urine WBC 1-5/hpf (0-5/HPF) Ur Squamous Epith Cells 5-10 /hpf H (0-5/HPF) Ur Transition Epith Cell 0-1/hpf (0-5/HPF) Urine Bacteria Many (>30) H (None) Ur Culture Indicated? Cult not indicated Ketones (<0.27) mmol/L Point of Care Testing Test Results Negative Urine Dip Bedside Urine Glucose 1000 mg/dl Bedside Urine Bilirubin - Negative Bedside Urine Ketone - Negative Urine Specific [place] 1.015 Bedside Urine Occult Blood + Bedside Urine pH 5.5 Bedside Urine Protein + 30 Bedside Urine Urobilinogen - Negative Bedside Urine Nitrite - Negative Bedside Urine Leukocytes - Negative Esterase ECG Data Attestation: I personally reviewed and interpreted this ECG as follows: Prior ECG tracings: not available for review Interpretation: SR rate at 68. Normal [place]. L atrial enlargement in V1/V2 No ST elevation or depression. MDM Narrative Medical decision making narrative: Patient presents to ED for asymptomatic hypocalcemia. Patient request lab checked for calcium and EKG after she received a phone call from her fabric lay out worker yesterday. The patient was known to have HTN and CKD. Patient's recent lab results were not available today since this has been drawn at [facility] in [place] and the Lab was closed. EKG was normal sinus rhythm. CMP showed glucose of 668/decreased Na 127/Cl 97/Ca 6.7/CO2 of 15, normal K, significantly elevated BUN 60 with Cr 7.8 amd GFR of 5.8 as stage 5 CKD from the know stage 4 CKD. She has an anemia of H&H 8.7/26.9. Normal lipase and ketones. The patient initially declined IV fluid therapy and additional lab draw stating would like to get additional insulin only. Patient also denied ABG. VBG showed metabolic acidosis of pH of 7.22/CO2 of 38.4/pO2 of 46/HCO3 of 16/CO2 of 17/BE -12. Chest x-ray was negative for acute pulmonary process. Negative urine . Urine was negative for nitrite and leuks but shows protein. Patient was hydrated with a L of IV fluid and re-evaluated chemistry. Improves sodium and chloride of 130/104. Potassium was mildly decreased to 3.6. Very mildly improved Cr of 7.5 wtih GFR of 6.0 with unchanged BUN of 60. Glucose improved to 433 and mildly decreased Ca 6.4. I discussed with the patient about admission to hospital to monitor her kidney function test, improving acidosis and IV hydration and patient declined this option stating her lab tests are always bed. Patient informed that it is difficulty to compare lab results since there is no recent baseline. Patient states she has follow-up appointment with her education program coordinator and primary care physician this coming week is not willing to stay in the hospital and would like to go home. Patient continued to have no significant symptoms at this time. Patient was provided with another L of IVF of NS prior discharging to home. Against Medical Advice paper was reviewed with the patient and verbalized understanding of this document and patient is alert and oriented x3, is capable of making sound decision at this time while she is not under influence. Patient inform she is always welcome to return to ED for evaluation and strict return precautions were discussed with the patient. Patient verbalized understanding. <Saturnino Mackenzie, DO - Last Filed: 11/18/19 01:34> Lab Data Labs: Lab Results 11/17/19 11/17/19 11/17/19 Range/Units 17:30 17:30 17:30 WBC 5.6 (4.5-11.0) X10^3/uL RBC 2.99 L (4.0-5.2) X10^6/uL Hgb 8.7 L (12.0-16.0) g/dL Hct 26.9 L (36-46) % MCV 90.0 (80-100) fL MCH 29.1 (26-34) PG MCHC 32.4 (30-36) % RDW 13.8 (11.6-14.8) % Plt Count 192 (150-400) X10^3/uL Neut % (Auto) 61.0 (50-75) % Lymph % (Auto) 24.9 L (25-40) % [place] % (Auto) 8.6 (3-14) % Eos % (Auto) 4.4 H (2-4) % Baso % (Auto) 1.1 (0-2) % Neut # (Auto) 3400 (4747-5464) /uL Lymph # (Auto) 1400 (5006-3153) /uL [place] # (Auto) 500 (0-900) /uL Eos # (Auto) 200 (0-450) /uL Baso # (Auto) 100 (0-100) /uL VBG pH (7.33-7.43) VBG pCO2 (45-50) mmHg VBG pO2 (35-45) mmHg VBG HCO3 (23-28) mmol/L VBG Total CO2 (24-29) mmol/L VBG O2 Saturation (70-75) % VBG Base Excess (0-4) mmol/L Sodium 127 L (137-145) mmol/L Potassium 4.2 (3.4-5.1) mmol/L Chloride 97 L (98-107) mmol/L Carbon Dioxide 15 L (22-32) mmol/L BUN 60 H (7-17) mg/dL Creatinine 7.80 H* (0.52-1.04) mg/dL Estimated GFR 5.8 L (>60) mL/min BUN/Creatinine Ratio 7.7 (6-22) Glucose 668 H* (70-100) mg/dL Calcium 6.7 L (8.4-10.2) mg/dL Phosphorus 6.7 H (2.5-4.5) mg/dL Magnesium 2.2 (1.6-2.3) mg/dL Total Bilirubin 0.3 (0.2-1.3) mg/dL AST 23 (14-36) IU/L ALT 22 (<35) IU/L Alkaline Phosphatase 135 H (38-126) U/L Total Protein 6.2 L (6.3-8.2) g/dL Albumin 3.5 (3.5-5.0) g/dL Globulin 2.7 (1.7-4.1) g/dL Albumin/Globulin Ratio 1.3 (1.0-2.8) Lipase 221 (23-300) U/L Urine RBC (0-5/HPF) Urine WBC (0-5/HPF) Ur Squamous Epith Cells (0-5/HPF) Ur Transition Epith Cell (0-5/HPF) Urine Bacteria (None) Ur Culture Indicated? Ketones 0.19 (<0.27) mmol/L 11/17/19 11/17/19 11/17/19 Range/Units 18:40 18:50 20:15 WBC (4.5-11.0) X10^3/uL RBC (4.0-5.2) X10^6/uL Hgb (12.0-16.0) g/dL Hct (36-46) % MCV (80-100) fL MCH (26-34) PG MCHC (30-36) % RDW (11.6-14.8) % Plt Count (150-400) X10^3/uL Neut % (Auto) (50-75) % Lymph % (Auto) (25-40) % [place] % (Auto) (3-14) % Eos % (Auto) (2-4) % Baso % (Auto) (0-2) % Neut # (Auto) (4130-8840) /uL Lymph # (Auto) (1351-6304) /uL [place] # (Auto) (0-900) /uL Eos # (Auto) (0-450) /uL Baso # (Auto) (0-100) /uL VBG pH 7.22 L (7.33-7.43) VBG pCO2 38.4 L (45-50) mmHg VBG pO2 46 H (35-45) mmHg VBG HCO3 16 L (23-28) mmol/L VBG Total CO2 17 L (24-29) mmol/L VBG O2 Saturation 73 (70-75) % VBG Base Excess -12.0 L (0-4) mmol/L Sodium 130 L (137-145) mmol/L Potassium 3.6 (3.4-5.1) mmol/L Chloride 104 (98-107) mmol/L Carbon Dioxide 15 L (22-32) mmol/L BUN 60 H (7-17) mg/dL Creatinine 7.50 H* (0.52-1.04) mg/dL Estimated GFR 6.0 L (>60) mL/min BUN/Creatinine Ratio 8.0 (6-22) Glucose 433 H D (70-100) mg/dL Calcium 6.4 L* (8.4-10.2) mg/dL Phosphorus (2.5-4.5) mg/dL Magnesium (1.6-2.3) mg/dL Total Bilirubin 0.2 (0.2-1.3) mg/dL AST 18 (14-36) IU/L ALT 20 (<35) IU/L Alkaline Phosphatase 118 (38-126) U/L Total Protein 5.8 L (6.3-8.2) g/dL Albumin 3.8 (3.5-5.0) g/dL Globulin 2.0 (1.7-4.1) g/dL Albumin/Globulin Ratio 1.9 (1.0-2.8) Lipase (23-300) U/L Urine RBC 0-1/hpf (0-5/HPF) Urine WBC 1-5/hpf (0-5/HPF) Ur Squamous Epith Cells 5-10 /hpf H (0-5/HPF) Ur Transition Epith Cell 0-1/hpf (0-5/HPF) Urine Bacteria Many (>30) H (None) Ur Culture Indicated? Cult not indicated Ketones (<0.27) mmol/L Point of Care Testing Test Results Negative Urine Dip Bedside Urine Glucose 1000 mg/dl Bedside Urine Bilirubin - Negative Bedside Urine Ketone - Negative Urine Specific [place] 1.015 Bedside Urine Occult Blood + Bedside Urine pH 5.5 Bedside Urine Protein + 30 Bedside Urine Urobilinogen - Negative Bedside Urine Nitrite - Negative Bedside Urine Leukocytes - Negative Esterase Discharge Plan Departure Patient Disposition: Left Against Medical Advice Clinical Impression: Blood glucose elevated, Chronic renal disease, stage IV, Hypocalcemia Hypertension Qualifiers: Hypertension type: secondary to endocrine disorders Qualified Code(s): I15.2 - Hypertension secondary to endocrine disorders Anemia Qualifiers: Anemia type: due to chronic kidney disease Chronic kidney disease stage: stage 4 (severe) Qualified Code(s): N18.4 - Chronic kidney disease, stage 4 (severe) Discharge Date/Time: 11/17/19 21:25 Instructions: Chronic Renal Failure, DI for Diabetes Type 1 -- Adult, DI for Anemia of Chronic Disease, DI for Hypocalcemia Activity Restrictions/Additional Instructions: You have been diagnosed with [elevated blood glucose, acidosis, electrolyte imbalance, chronic kidney disease, anemia based on today's blood test. Chest x-ray was clear for infection. Urine is pending culture but does not appears to have obvious infection.]. What to do: *Take your medications as directed. You were treated with IV fluids normal saline 2 L while in ED. *Follow up with your primary care provider in 2-3 days, call for an appointment. Let them know you were seen in the ED and that we asked you to be seen in follow up. Please call the clinics for education program coordinator and your PCP on Wednesday to follow-up sooner than your scheduled appointment on Wednesday and . *Return to ED if you have any new, worsening, or concerning symptoms, such as [chest pain, breathing difficulty, unable to tolerate fluids, musculoskeletal weakness, or any acute concerns]. Prescriptions: No Action lisinopril 10 mg tablet 10 mg PO DAILY RF: 0 Combigan 0.2-0.5 % drops 1 drp ophthalmic (eye) BID RF: 0 Lantus U-100 Insulin 100 unit/mL solution 0 unit subcut DIRECTED RF: 0 insulin lispro [Humalog U-100 Insulin] 100 unit/mL solution 0 unit subcut DIRECTED RF: 0 albuterol sulfate [ProAir HFA] 90 mcg/actuation HFA aerosol inhaler 1 puff inhalation DIRECTED RF: 0 lidocaine 5 % adhesive patch,medicated 1 patch TOP DAILY Qty: 15 RF: 0 Referrals: Juvencio Harris [Non-Staff] - Stand Alone Forms: Against Medical Advice <Saturnino Mackenzie DO - Last Filed: 11/18/19 01:34> Sign Out Provider Sign Out Attestation: A PC did discuss this patient with me however I had no physical interactions with the patient. We did discuss labs that should be ordered. Patient did sign out Against Medical Advice.
== END 2019-11-17 21:25 | disposition left against medical advice (07) ==
PROVIDERS: Emergency Provider Nurse Practitioner Family
DX: E10.65 Type 1 diabetes mellitus with hyperglycemia (principal); I15.2 Hypertension secondary to endocrine disorders; N18.4 Chronic kidney disease, stage 4 (severe); D64.9 Anemia, unspecified; E83.51 Hypocalcemia; Z79.4 Long term (current) use of insulin
CPT/HCPCS: 36415; 71046; 80053; 81003; 81015; 81025; 82009; 82805; 83690; 83735; 84100; 85025; 87040; 93005; 93010; 96360; 96361; 99284; 99285

== ENCOUNTER → 2019-12-12 10:58 | Outpatient (CLI) | payer OTHER, MEDICAID, SELFPAY ==
[2019-12-12 11:28] VITALS: BP 131/67; PULSE 72; RESP 16; TEMP 36.4; O2SAT 100
[2019-12-12 12:19] LABS: Hematocrit 23.2 % (36-46); Hemoglobin 7.7 g/dL (12.0-16.0); Mean Corpuscular HGB Conc 33.3 % (30-36); Mean Corpuscular Hemoglobin 29.6 PG (26-34); Mean Corpuscular Volume 88.9 fL (80-100); Platelet Count 212 X10^3/uL (150-400); Red Blood Cell Count 2.61 X10^6/uL (4.0-5.2); Red Cell Distribution Width 14.4 % (11.6-14.8); White Blood Cell Count 4.9 X10^3/uL (4.5-11.0)
[2019-12-12 12:30] LABS: Alanine Aminotransferase 15 IU/L (<35); Albumin 3.6 g/dL (3.5-5.0); Albumin Globulin Ratio 1.3 (1.0-2.8); Alkaline Phosphatase 85 U/L (38-126); Aspartate Aminotransferase 16 IU/L (14-36); Bilirubin Total 0.2 mg/dL (0.2-1.3); Blood Urea Nitrogen 73 mg/dL (7-17); Calcium 7.2 mg/dL (8.4-10.2); Carbon Dioxide 10 mmol/L (22-32); Chloride 112 mmol/L (98-107); Globulin 2.8 g/dL (1.7-4.1); Glucose 248 mg/dL (70-100); HEMOLYSIS < 15 (0-50); Potassium 5.2 mmol/L (3.4-5.1); Sodium 136 mmol/L (137-145); Total Protein 6.4 g/dL (6.3-8.2)
[2019-12-12 12:37] LABS: Iron 100 ug/dL (37-170)
[2019-12-12 12:38] LABS: BUN Creatinine Ratio 6.2 (6-22); Estimated Glomerular Filt Rate 3.6 mL/min (>60)
[2019-12-12 12:46] LABS: Total Iron Binding Capacity 214 ug/dL (265-497)
[2019-12-12 13:05] LABS: Ferritin 53 ng/mL (6-137)
--- NOTE | 2019-12-12 14:51 | PC.NURSE ---
PATIENT HERE FOR LABS AND DARBEPOETIN WITH STAGE IV KIDNEY DISEASE PER ORDER. LABS OBTAINED PER ORDERED SHOWED A SIGNIFICANT JUMP IN CREA TO 11.7 FROM 7.5 ON 11/17. PER INSTRUCTIONS FROM [employer] SORTER OUTSIDE INSTALLER APPRENTICE WE INSTRUCTED PATIENT TO GO TO ER AT [facility] IN [place] WHERE SHE CAN ALSO BE STARTED ON DIALYSIS IF NECESSARY. PATIENT HAD NO COMPLAINT OF SYMPTOMS, SHE REPORTS URINATING LIGHT YELLOW URINE, NO DIZZINESS, NO CHEST PAIN. SHE WILL GO HOME FIRST TO [place] TO MEET HER FIANCEE AND CHILDREN AND HAVE THEM DRIVE HER UP TO [place]. DR. DAVEY'S OFFICE WAS INFORMED OF THIS PLAN AND THAT PATIENT WAS NOT GIVEN THE DARBE INJ HERE BASED ON THE ABNORMAL CHEMISTRY LABS AND NEED FOR PATIENT TO BE SEEN IN ER.
== END ==
PROVIDERS: Referring Provider Physician Assistant Medical; Visit Provider Physician Assistant Medical
DX: N18.5 Chronic kidney disease, stage 5 (principal); D63.1 Anemia in chronic kidney disease
CPT/HCPCS: 36415; 80053; 82728; 83540; 83550; 85027

== ENCOUNTER → 2021-11-12 07:47 | Outpatient (CLI) | payer MEDICARE, MEDICAID, SELFPAY ==
--- NOTE | 2021-11-12 | DI.ECHO.S_ITS ---
[place] +---------+ [facility] +---------+ : : [address] : : : : [id number] : : : : Phone: [phone]+ Echocardiogram Report + + :Name: TONIE GARSIA Study Date: 11/12/2021 Height: 62 in : :[facility] ReadingLocation: Weight: 128 lb : : Gender: Female BSA: 1.6 m2 : :: 1980 Age: 40 yrs BP: 155/106 mmHg: :Reason For Study: AWAITING ORGAN TRANSPLANT STATUS : :Ordering Physician: PETAR, : :BRYCE Performed By: Alexandria Puri : :Referring: BRYCE DAVEY : + + Interpretation Summary Normal sinus rhythm. Normal LV size, wall thickness, wall motion and LV systolic function. EF is 60-65%. Normal chamber sizes. No valvular abnormalities. No prior study available for comparison. Procedure: A two-dimensional transthoracic echocardiogram with color flow and Doppler was performed. The study quality was technically good. There is no prior echocardiogram noted for this patient. The patient was in sinus rhythm with heart rates between 62-80 bpm during the exam. Left Ventricle: The left ventricle is normal in size and wall thickness. The ejection fraction is estimated to be 60-65%. Right Ventricle: The right ventricle is normal in size and function. Atria: The left atrial size is normal. Right atrial size is normal. There is no Doppler evidence for an interatrial shunt. Mitral Valve: The mitral valve is normal in structure and function. There is trace mitral regurgitation. Aortic Valve: The aortic valve is trileaflet. The aortic valve opens well. There is no aortic valve stenosis. There is trace aortic regurgitation. Tricuspid Valve: The tricuspid valve is normal in structure and function. There is trace tricuspid regurgitation. Pulmonic Valve: The pulmonic valve leaflets are thin and pliable; valve motion is normal. There is mild pulmonic regurgitation. Great Vessels: The aortic root is normal size. The ascending aorta is at the upper limits of normal in size. The IVC is of normal diameter and collapses greater than 50% with a sniff. This suggests a low right atrial pressure of 3 mm Hg. Pericardium/ Pleura There is no pericardial effusion. There is no pleural effusion. MMode/2D Measurements & Calculations LVIDd: 4.7 cm LVOT diam: 1.7 cm LVIDs: 3.2 cm Ao root diam: 2.3 cm FS: 32.4 % asc Aorta Diam: 3.4 cm IVSd: 0.80 cm Ao Arch Diam (Prox Trans): 2.3 cm LVPWd: 0.69 cm LV caldwell. diameter/BSA (cm/m^2): 3.0 LV sys. diameter/BSA (cm/m^2): 2.0 LA A2 area: 17.6 cm2 RA long axis: 4.4 cm LA A4 area: 16.0 cm2 RA area: 11.8 cm2 LA length (vol): 4.5 cm RA vol: 26.5 ml LA vol: 52.8 ml RA : 16.8 ml/m2 LA vol index: 33.4 ml/m2 IVC diam: 1.2 cm RVD1 (basal): 2.7 cm TAPSE: 2.2 cm Doppler Measurements & Calculations Ao V2 max: 147.9 cm/sec LVOT Max Alberto: 77.6 cm/sec Ao V2 mean: 99.8 cm/sec LV V1 max P.4 mmHg Ao max P.8 mmHg LV V1 VTI: 17.5 cm Ao mean P.4 mmHg LUIS ANGEL(I,D): 1.1 cm2 Ao V2 VTI: 33.8 cm LUIS ANGEL(V,D): 1.1 cm2 sev ratio: 0.52 LUIS ANGEL indexed to BSA (cm^2/m^2): 0.70 MV E max alberto: 91.9 cm/sec PA V2 max: 108.0 cm/sec MV A max alberto: 123.2 cm/sec PA V2 mean: 70.7 cm/sec MV E/A: 0.75 PA mean P.2 mmHg Med Peak E' Alberto: 6.6 cm/sec PA pr(Accel): 19.1 mmHg E/E' med: 13.9 Lat Peak E' Alberto: 8.5 cm/sec E/E' lat: 10.8 E/e' average: 12.4 MV dec time: 0.19 sec SV(LVOT): 37.6 ml Electronically signed by: Archana Mccrary M.D. on Reading Physician:11/12/2021 09:59 PM
--- NOTE | 2021-11-12 | DI.RAD.S_ITS ---
PROCEDURE: XR CHEST 2V INDICATIONS: Awaiting organ transplant status TECHNIQUE: 2 views of the chest were acquired. COMPARISON: [facility], CR, XR CHEST 2V, 11/09/2018, 16:27. FINDINGS: Surgical changes and devices: None. Lungs and pleura: Lungs are clear. No pleural effusions or pneumothorax. Mediastinum: Mediastinal contours are normal. Heart size is normal. Bones and chest wall: No suspicious bony abnormalities. Soft tissues appear unremarkable. IMPRESSION: No acute cardiopulmonary abnormality. Dictated by: Abdulaziz Interiano M.D. on 11/12/2021 at 9:02 Approved by: Abdulaziz Interiano M.D. on 11/12/2021 at 9:03
--- NOTE | 2021-11-12 08:10 | DI.CT.S_ITS ---
PROCEDURE: CT ABDOMEN PELVIS WO CON INDICATIONS: Awaiting organ transplant status TECHNIQUE: Noncontrast 5 mm thick sections acquired from the diaphragms to the symphysis. 5 mm coronal and sagittal reformats were then performed. For radiation dose reduction, the following was used: automated exposure control, adjustment of mA and/or kV according to patient size. COMPARISON: None. FINDINGS: Image quality: Excellent. ABDOMEN: Lung bases: Lung bases are clear. Heart size is normal. Small hiatal hernia Solid organs: Liver is normal in size. Gallbladder is decompressed but otherwise unremarkable . Pancreas is normal in contours. Spleen is normal in size. No adrenal nodules. Bilateral kidneys are atrophic without hydronephrosis or nephrolithiasis. Dense atherosclerosis noted in the bilateral renal dwight and bilateral renal arteries. Peritoneum and bowel: Unenhanced bowel loops demonstrate normal wall thickness and caliber. No free air. Normal appendix. Moderate amount of ascites seen throughout the abdomen and pelvis. Nodes and vessels: No retroperitoneal or mesenteric adenopathy by size criteria. Aorta and inferior vena cava are normal in caliber. Dense atherosclerotic calcifications seen throughout the iliac vessels and mesenteric vessels of the abdomen. Scattered atherosclerotic calcifications of the abdominal aorta. Miscellaneous: No ventral hernias. Multiple coarse calcifications in the subcutaneous soft tissues of the lower anterior abdominal wall likely sequela chronic medication injections. Peritoneal dialysis catheter enters the left lower anterior abdominal wall with distal tip coiled near the midline lower pelvis. No evidence suggest organized fluid collection surrounding the catheter tip or within the visualized portions of the abdomen. PELVIS: Genitourinary: Bladder wall thickness is normal. Miscellaneous: No inguinal hernias or adenopathy. Bones: No suspicious bony lesions. No vertebral body compression fractures. IMPRESSION: 1. Bilateral atrophic kidneys with associated vascular calcifications. No evidence for urolithiasis or obstructive uropathy. 2. Moderate amount of ascites seen throughout the abdomen and pelvis. Peritoneal dialysis catheter appears unremarkable in positioning. No findings to suggest or organized fluid collections within the abdomen or pelvis. 3. Other chronic findings as above Dictated by: Damian Pedroza M.D. on 11/12/2021 at 10:19 Approved by: Damian Pedroza M.D. on 11/12/2021 at 10:26
== END ==
PROVIDERS: PCP Registered Nurse; Referring Provider Specialist; Visit Provider Specialist
DX: Z76.82 Awaiting organ transplant status (principal); N26.1 Atrophy of kidney (terminal); I37.1 Nonrheumatic pulmonary valve insufficiency; R18.8 Other ascites; K44.9 Diaphragmatic hernia without obstruction or gangrene; I70.1 Atherosclerosis of renal artery; I70.0 Atherosclerosis of aorta
CPT/HCPCS: 71046; 74176; 93005; 93010; 93306

== ENCOUNTER 2021-12-14 17:17 | Emergency (ER) | payer MEDICARE, MEDICAID, SELFPAY ==
[2021-12-14] VITALS (16 sets, daily range): BP systolic 110–159; BP diastolic 59–84; PULSE 55–100; RESP 16–24; TEMP 36.3; O2SAT 96–99
[2021-12-14] MEDS: MORPHINE 4 MG/ML INJ IV (17:59)
[2021-12-14] MEDS: ONDANSETRON 4 MG/2 ML INJ IV (17:59)
--- NOTE | 2021-12-14 18:03 | ED_ITS ---
HPI - Abdominal Pain General Chief Complaint: Abdominal Pain Stated Complaint: ABD. PAIN Time Seen by Provider: 12/14/21 17:28 Source: patient and family Mode of arrival: Wheelchair History of Present Illness HPI narrative: 40-year-old female smoker with history of diabetes and peritoneal dialysis presents with chief complaint of lower abdominal pain worsening over the course of the day with associated nausea and vomiting. She denies any change in her medications, diet or dialysis routine. She is managed by Dr. Rainey in [place]. She states that her pain is worse with motion and worse with vomiting. She states she has not made urine in many years. She is fully vaccinated against COVID. She denies runny nose, sore throat or cough. She denies fever, chills. She called the inhalation therapist nurse and was instructed to present to the closest ED. Related Data Home Medications Medication Instructions Recorded Confirmed albuterol sulfate 90 mcg/actuation 1 puff INHALATION DIRECTED 11/09/18 11/17/19 aerosol inhaler insulin glargine 100 unit/mL 0 unit SUBCUT DIRECTED 11/09/18 subcutaneous solution insulin lispro 100 unit/mL 0 unit SUBCUT DIRECTED 11/09/18 subcutaneous solution brimonidine 0.2 %-timolol 0.5 % 1 drp OPHTHALMIC (EYE) BID 11/17/19 11/17/19 eye drops (Combigan) lisinopril 10 mg tablet 10 mg PO DAILY 11/17/19 11/17/19 Previous Rx's Medication Instructions Recorded lidocaine 5 % topical patch 1 patch TOP DAILY #15 each 11/09/18 Allergies Allergy/AdvReac Type Severity Reaction Status Date / Time No Known Drug Allergies Allergy Verified 11/17/19 16:28 Review of Systems Review of Systems Narrative: GENERAL: Denies chills, fatigue, malaise, fever, sweats. HEENT: Denies sinus pain, ear pain, sore throat, difficulty swallowing, dizziness. RESPIRATORY: Denies dyspnea, cough, wheezing, hemoptysis, sputum. CARDIOVASCULAR: Denies chest pain, palpitations, orthopnea, edema, GASTROINTESTINAL: See HPI : Denies dysuria, frequency, incontinence, hematuria, urinary retention. MUSCULOSKELETAL: denies weakness, joint pain, or bony pain SKIN: Denies rash, skin lesions, or other NEUROLOGIC: Denies weakness, headache, numbness, change in speech, confusion, seizures, incoordination. PSYCHIATRIC: No concerning psychosocial issues. 12 point review of systems is negative except for those stated above Patient History Medical History Type 1 diabetes Surgical History H/O eye surgery Social History Smoking Status: Current every day smoker Smoking Status: Current every day smoker Substance Use Type: marijuana Exam Narrative Exam Narrative: GENERAL: [40 year old patient appears stated age. Well-developed patient, in mild distress. Tearful, clearly in pain, holding an emesis bag HEAD: Atraumatic. Normocephalic. EYES: Pupils equal round and reactive. Extraocular motions intact. No scleral icterus. No injection or drainage. ENT: Nose without bleeding, purulent drainage. Throat without erythema, tonsillar hypertrophy or exudate. Airway patent. NECK: Trachea midline. Non tender CARDIOVASCULAR: Regular rate and rhythm without murmurs, gallops, or rubs. RESPIRATORY: Clear to auscultation. Breath sounds equal bilaterally. No wheezes, rales, or rhonchi. GASTROINTESTINAL: Abdomen soft, tender throughout, bowel sounds present nondistended. EXTREMITIES: No edema or joint tenderness. BACK: Nontender without deformity or crepitance. No flank tenderness. NEURO: AOx3. SKIN: No rash or erythema of visible areas Initial Vital Signs Initial Vital Signs: Vital Signs Pulse Rate 99 H 12/14/21 17:20 Pulse Oximetry 99 12/14/21 17:20 Course Orders Ordered: ED Orders 12/14/21 17:25 EKG-12 Lead Stat 12/14/21 17:45 Complete Blood Count AUTO DIFF Stat Comprehensive Metabolic Panel Stat Lipase Stat Test Serum,Qual Stat 12/14/21 18:10 COVID19 -Nasal swab/Pre-Proc Stat 12/14/21 18:29 CT abdomen pelvis wo con Stat 12/14/21 20:15 Body Fluid Culture Stat Cell Count w Diff Body Fluid Stat Discontinued Medications Morphine Sulfate (Morphine 4 Mg/Ml Inj) 4 mg IV NOW ONE Stop: 12/14/21 17:29 Last Admin: 12/14/21 17:59 Dose: 4 mg Documented by: [email or web address] Ondansetron HCl (Ondansetron 4 Mg/2 Ml Inj) 4 mg IV NOW ONE Stop: 12/14/21 17:29 Last Admin: 12/14/21 17:59 Dose: 4 mg Documented by: ATIYA Reevaluation(s) Reevaluation #1: she experiences significant improvement after above stated medications. Now informs that she had a temp earlier of 101F. Consultations Consultation #1: call to inhalation therapist nephrology at [place] (Margaret), agrees with possible Dx of peritonitis, recommends obtaining peritoneal fluid for GS/Culture, cell count. If >100WBC or >50% neutrophils then would need transfer for intraabdominal ABX. Recommends against IV ABX. HE calls back after 30 minutes or so and fluid reported as cloudy, he then recommends transfer with admit to hospitalist Consultation #2: RONNELL Lindsay at [place] happy to accept patient in transfer. Consultation #3: ambulance has been contacted and is set to arrive at 2220 on 12/14/2021 Vital Signs Vital signs: Vital Signs - 8 hr 12/14/21 17:20 12/14/21 17:21 12/14/21 17:23 Temperature 97.4 F L Pulse Rate 99 H 99 H 96 H Respiratory Rate 24 Blood Pressure 159/76 H 159/76 H Pulse Oximetry 99 99 98 12/14/21 17:30 12/14/21 17:39 12/14/21 18:00 Temperature Pulse Rate 55 L Respiratory Rate Blood Pressure 122/71 146/73 H Pulse Oximetry 99 99 99 12/14/21 18:30 12/14/21 19:00 12/14/21 19:30 Temperature Pulse Rate 82 95 H 99 H Respiratory Rate 20 19 16 Blood Pressure 110/59 L Pulse Oximetry 98 96 98 12/14/21 20:00 12/14/21 20:17 12/14/21 20:30 Temperature Pulse Rate 97 H 100 H 97 H Respiratory Rate 20 23 17 Blood Pressure 136/69 126/69 Pulse Oximetry 96 98 97 12/14/21 21:00 12/14/21 21:30 12/14/21 21:59 Temperature Pulse Rate 96 H 93 H 94 H Respiratory Rate 17 21 18 Blood Pressure 145/84 H 143/77 H Pulse Oximetry 98 99 99 12/14/21 22:00 Temperature Pulse Rate Respiratory Rate Blood Pressure 134/74 Pulse Oximetry MDM - Abdominal Pain Lab Data Result diagrams: 12/14/21 17:45 12/14/21 17:45 Labs: Lab Results 12/14/21 12/14/21 12/14/21 Range/Units 17:45 17:45 17:45 WBC 10.8 (4.5-11.0) X10^3/uL RBC 4.80 (4.0-5.2) X10^6/uL Hgb 13.2 (12.0-16.0) g/dL Hct 40.3 (36-46) % MCV 84.1 (80-100) fL MCH 27.5 (26-34) PG MCHC 32.6 (30-36) % RDW 14.8 (11.6-14.8) % Plt Count 284 (150-400) X10^3/uL Neut % (Auto) 85.7 H (50-75) % Lymph % (Auto) 8.0 L (25-40) % Milam % (Auto) 4.2 (3-14) % Eos % (Auto) 1.3 L (2-4) % Baso % (Auto) 0.8 (0-2) % Neut # (Auto) 9300 H (2546-1881) /uL Lymph # (Auto) 900 L (7517-4195) /uL Milam # (Auto) 500 (0-900) /uL Eos # (Auto) 100 (0-450) /uL Baso # (Auto) 100 (0-100) /uL Sodium 130 L (137-145) mmol/L Potassium 4.3 (3.4-5.1) mmol/L Chloride 100 (98-107) mmol/L Carbon Dioxide 20 L (22-32) mmol/L BUN 44 H (7-17) mg/dL Creatinine 14.7 H* (0.52-1.04) mg/dL Estimated GFR 2.7 L (>60) mL/min BUN/Creatinine Ratio 3.0 L (6-22) Glucose 101 H (70-100) mg/dL Calcium 8.9 (8.4-10.2) mg/dL Total Bilirubin 0.5 (0.2-1.3) mg/dL AST 16 (14-36) IU/L ALT 20 (<35) IU/L Alkaline Phosphatase 127 H (38-126) U/L Total Protein 6.3 (6.3-8.2) g/dL Albumin 3.5 (3.5-5.0) g/dL Globulin 2.8 (1.7-4.1) g/dL Albumin/Globulin Ratio 1.3 (1.0-2.8) Lipase 111 (23-300) U/L Serum , Qual Negative (Negative) Fluid Color Fluid Appearance Fluid RBC /uL Fld Tot Nucleated Cell /uL Fluid Polynuclear WBCs % Fluid Mononuclear WBCs % Fluid Eosinophils Fluid Other Cells Body Fluid Clot SARS-CoV-2 (PCR) (Negative) 12/14/21 12/14/21 Range/Units 18:10 20:15 WBC (4.5-11.0) X10^3/uL RBC (4.0-5.2) X10^6/uL Hgb (12.0-16.0) g/dL Hct (36-46) % MCV (80-100) fL MCH (26-34) PG MCHC (30-36) % RDW (11.6-14.8) % Plt Count (150-400) X10^3/uL Neut % (Auto) (50-75) % Lymph % (Auto) (25-40) % Milam % (Auto) (3-14) % Eos % (Auto) (2-4) % Baso % (Auto) (0-2) % Neut # (Auto) (5249-3962) /uL Lymph # (Auto) (9952-9371) /uL Milam # (Auto) (0-900) /uL Eos # (Auto) (0-450) /uL Baso # (Auto) (0-100) /uL Sodium (137-145) mmol/L Potassium (3.4-5.1) mmol/L Chloride (98-107) mmol/L Carbon Dioxide (22-32) mmol/L BUN (7-17) mg/dL Creatinine (0.52-1.04) mg/dL Estimated GFR (>60) mL/min BUN/Creatinine Ratio (6-22) Glucose (70-100) mg/dL Calcium (8.4-10.2) mg/dL Total Bilirubin (0.2-1.3) mg/dL AST (14-36) IU/L ALT (<35) IU/L Alkaline Phosphatase (38-126) U/L Total Protein (6.3-8.2) g/dL Albumin (3.5-5.0) g/dL Globulin (1.7-4.1) g/dL Albumin/Globulin Ratio (1.0-2.8) Lipase (23-300) U/L Serum , Qual (Negative) Fluid Color Colorless Fluid Appearance Cloudy Fluid RBC 1462 /uL Fld Tot Nucleated Cell 41162 /uL Fluid Polynuclear WBCs 51 % Fluid Mononuclear WBCs 49 % Fluid Eosinophils Not Reportable Fluid Other Cells Not Reportable Body Fluid Clot No clots present SARS-CoV-2 (PCR) Negative (Negative) Imaging Data CT scan - abdomen/pelvis: Radiologist's Impression: Launch?Image [address] [address] [address] Scan Report Signed Patient: Jasmeet Joy MR#: [id number] : 1980 Acct:[id number] Age/Sex: 40 / F Date of Service: 12/14/21 Loc: ED Accession Number: [id number] ?? Procedure: CT abdomen pelvis wo con Ordering Provider: William Edwards D.O. PROCEDURE:? CT ABDOMEN PELVIS WO CON ? INDICATIONS:? severe generalized abdominal pain ? TECHNIQUE:? Axial sections were acquired from the lung bases to the pubic symphysis.? Coronal and sagittal reformats were performed.? For radiation dose reduction, the following was used: ?automated exposure control, adjustment of mA and/or kV according to patient size.? ? COMPARISON:? [facility], CT, CT ABDOMEN PELVIS WO CON, 11/12/2021, 7:59. ? FINDINGS:? Image quality:? Excellent.? ? Lung bases:? Unremarkable.? ? Heart:? No significant findings. ? URINARY: Kidneys and ureters:? The kidneys are moderately atrophic bilaterally.? No hydronephrosis.? Bilateral renal artery calcifications are seen. ? Bladder:? Normal wall thickness. No stones. ? ? ? ABDOMEN: Liver:? Unremarkable.? ? Gallbladder:? Unremarkable. Biliary ducts:? Unremarkable.? ? Pancreas:? Unremarkable.? ? Spleen:? Unremarkable.? ? Adrenal Glands:? Unremarkable.? ? ? Stomach and Bowel:? The bowel is underdistended, which limits evaluation.? Normal appendix. Peritoneum:? A peritoneal dialysis catheter is seen looping in the pelvis.? Small amount of free fluid throughout the abdomen and pelvis is most likely related to peritoneal dialysis.? A few foci of air in the left upper quadrant are also likely dialysis related. ? Ventral Wall: ? No hernia.? Bilateral injection granulomas are seen in the periumbilical regions. Abdominal Nodes:? No enlarged retroperitoneal or mesenteric lymph nodes.? Vessels:? Aorta and inferior vena cava are normal in size.? Visceral arterial calcifications are present diffusely. ? PELVIS: Pelvic Organs:? Unremarkable.? ? Pelvic Nodes: Unremarkable. Miscellaneous: No inguinal hernias are seen. ? ? ? Bones:? Nearly healed lateral right 7th rib fracture is noted. ? IMPRESSION:? 1. No acute abnormality identified in the abdomen or pelvis. 2. Peritoneal dialysis catheter with a small amount of ascites throughout the abdomen and pelvis.? Moderate renal atrophy. 3. A few foci of free air in the left upper quadrant are also most likely related to peritoneal dialysis.? No signs of focal bowel perforation identified.? ? Dictated by: Emigdio Pastor M.D. on 12/14/2021 at 19:19 ? ? Approved by: Emigdio Pastor M.D. on 12/14/2021 at 19:26 ? Critical Care Time Critical Care Time Critical Care Time: Yes Total Critical Care Time: 30 Attestation: The high probability of a clinically significant, sudden or life threatening deterioration of the [CV/] system(s) required my full and direct attention, intervention and personal management. The aggregate critical care time was [30] minutes. This time is in addition to time spent performing reported procedures but includes the following: [x] Data Review and interpretation [x] Patient assessment and monitoring of vital signs [x] Documentation [x] Medication orders and management Discharge Plan Departure Patient Disposition: [facility] Clinical Impression: Peritonitis, Abdominal pain Prescriptions: No Action lisinopril 10 mg tablet 10 mg PO DAILY 0RF Label Comments: take 1 tablet by mouth once daily Combigan 0.2-0.5 % drops 1 drp ophthalmic (eye) BID 0RF Lantus U-100 Insulin 100 unit/mL solution 0 unit subcut DIRECTED 0RF insulin lispro [Humalog U-100 Insulin] 100 unit/mL solution 0 unit subcut DIRECTED 0RF albuterol sulfate [ProAir HFA] 90 mcg/actuation HFA aerosol inhaler 1 puff inhalation DIRECTED 0RF lidocaine 5 % adhesive patch,medicated 1 patch TOP DAILY Qty: 15 0RF Rx Instructions: leave on most painful area for 12 hrs Referrals: Tess Rodriguez, MSN, SYSTEM DEVELOPMENT MANAGER-BC [Primary Care Provider] -
[2021-12-14 18:05] LABS: Add Manual Diff / Slide Review NO; Basophils Absolute Auto 100 /uL (0-100); Basophils Percent Auto 0.8 % (0-2); Eosinophils Absolute Auto 100 /uL (0-450); Eosinophils Percent Auto 1.3 % (2-4); Hematocrit 40.3 % (36-46); Hemoglobin 13.2 g/dL (12.0-16.0); Lymphocytes Absolute Auto 900 /uL (1100-4500); Mean Corpuscular HGB Conc 32.6 % (30-36); Mean Corpuscular Hemoglobin 27.5 PG (26-34); Mean Corpuscular Volume 84.1 fL (80-100); Monocytes Absolute Auto 500 /uL (0-900); Monocytes Percent Auto 4.2 % (3-14); Neutrophils Absolute Auto 9300 /uL (1500-7000); Neutrophils Percent Auto 85.7 % (50-75); Platelet Count 284 X10^3/uL (150-400); Red Cell Distribution Width 14.8 % (11.6-14.8); White Blood Cell Count 10.8 X10^3/uL (4.5-11.0)
[2021-12-14 18:14] LABS: Alanine Aminotransferase 20 IU/L (<35); Albumin 3.5 g/dL (3.5-5.0); Albumin Globulin Ratio 1.3 (1.0-2.8); Alkaline Phosphatase 127 U/L (38-126); Aspartate Aminotransferase 16 IU/L (14-36); Bilirubin Total 0.5 mg/dL (0.2-1.3); Blood Urea Nitrogen 44 mg/dL (7-17); Calcium 8.9 mg/dL (8.4-10.2); Carbon Dioxide 20 mmol/L (22-32); Chloride 100 mmol/L (98-107); Globulin 2.8 g/dL (1.7-4.1); Glucose 101 mg/dL (70-100); HEMOLYSIS < 15 (0-50); Lipase 111 U/L (23-300); Potassium 4.3 mmol/L (3.4-5.1); Pregnancy Test Serum,Qual Negative (Negative); Sodium 130 mmol/L (137-145); Total Protein 6.3 g/dL (6.3-8.2)
--- NOTE | 2021-12-14 18:29 | DI.CT.S_ITS ---
PROCEDURE: CT ABDOMEN PELVIS WO CON INDICATIONS: severe generalized abdominal pain TECHNIQUE: Axial sections were acquired from the lung bases to the pubic symphysis. Coronal and sagittal reformats were performed. For radiation dose reduction, the following was used: automated exposure control, adjustment of mA and/or kV according to patient size. COMPARISON: [facility], CT, CT ABDOMEN PELVIS WO CON, 11/12/2021, 7:59. FINDINGS: Image quality: Excellent. Lung bases: Unremarkable. Heart: No significant findings. URINARY: Kidneys and ureters: The kidneys are moderately atrophic bilaterally. No hydronephrosis. Bilateral renal artery calcifications are seen. Bladder: Normal wall thickness. No stones. ABDOMEN: Liver: Unremarkable. Gallbladder: Unremarkable. Biliary ducts: Unremarkable. Pancreas: Unremarkable. Spleen: Unremarkable. Adrenal Glands: Unremarkable. Stomach and Bowel: The bowel is underdistended, which limits evaluation. Normal appendix. Peritoneum: A peritoneal dialysis catheter is seen looping in the pelvis. Small amount of free fluid throughout the abdomen and pelvis is most likely related to peritoneal dialysis. A few foci of air in the left upper quadrant are also likely dialysis related. Ventral Wall: No hernia. Bilateral injection granulomas are seen in the periumbilical regions. Abdominal Nodes: No enlarged retroperitoneal or mesenteric lymph nodes. Vessels: Aorta and inferior vena cava are normal in size. Visceral arterial calcifications are present diffusely. PELVIS: Pelvic Organs: Unremarkable. Pelvic Nodes: Unremarkable. Miscellaneous: No inguinal hernias are seen. Bones: Nearly healed lateral right 7th rib fracture is noted. IMPRESSION: 1. No acute abnormality identified in the abdomen or pelvis. 2. Peritoneal dialysis catheter with a small amount of ascites throughout the abdomen and pelvis. Moderate renal atrophy. 3. A few foci of free air in the left upper quadrant are also most likely related to peritoneal dialysis. No signs of focal bowel perforation identified. Dictated by: Emigdio Pastor M.D. on 12/14/2021 at 19:19 Approved by: Emigdio Pastor M.D. on 12/14/2021 at 19:26
[2021-12-14 18:31] LABS: COVID19 -Nasal RAPID Negative (Negative)
[2021-12-14 18:32] LABS: Estimated Glomerular Filt Rate 2.7 mL/min (>60)
--- NOTE | 2021-12-14 18:38 | PC.NURSE ---
Critical lab received at 0834 from lab, creatinine 14.7. Provider aware.
--- NOTE | 2021-12-14 19:30 | PC.NURSE ---
pt resting on stretcher talking with family member at bedside
[2021-12-14 20:35] LABS: Body Fluid Red Blood Cells 1462 /uL; Body Fluid Tot Nucleated Cells 12960 /uL
[2021-12-14 20:37] LABS: Body Fluid Appearance CLOUDY; Body Fluid Clotted? NO CLOTS PRESENT; Body Fluid Color COLORLESS
[2021-12-14 21:27] LABS: Mononuclear WBC Body Fluid 49 %; Polynuclear WBC Body Fluid 51 %
--- NOTE | 2021-12-14 22:13 | PC.NURSE ---
report given to EMS crew
== END 2021-12-14 22:24 | disposition short-term general hospital (02) ==
PROVIDERS: Emergency Medicine; Emergency Provider Emergency Medicine; PCP Registered Nurse
DX: K65.9 Peritonitis, unspecified (principal); R03.0 Elevated blood-pressure reading, without diagnosis of hypertension; Z20.822 Contact with and (suspected) exposure to COVID-19
CPT/HCPCS: 36415; 74176; 80053; 83690; 84703; 85025; 87070; 87075; 87077; 87147; 87186; 87205; 87635; 89051; 93005; 96374; 96375; 99284; 99291; C9803; J2270; J2405

== ENCOUNTER → 2022-05-27 15:53 | Outpatient (CLI) | payer MEDICARE, MEDICAID, SELFPAY ==
--- NOTE | 2022-05-27 16:17 | DI.MRI.S_ITS ---
PROCEDURE: MR SHOULDER LT WO CON INDICATIONS: Adhesive capsulitis of left shoulder TECHNIQUE: Noncontrast oblique coronal T2 fast spin echo with fat saturation, oblique sagittal T1 spin echo and T2 fast spin echo with fat saturation, axial T1 spin echo and T2 fast spin echo with fat saturation through the shoulder. COMPARISON: [facility], CR, XR SHOULDER 2+ VIEWS LEFT, 05/19/2022, 14:20. FINDINGS: Image quality: Excellent. Rotator cuff: Supraspinatus tendinosis. Infraspinatus and teres minor are intact. Subscapularis tendinosis with interstitial tearing. Normal muscle bulk. Bones and bursae: No acute fracture. Small glenohumeral joint effusion. Trace subacromial subdeltoid bursal fluid. Mild overall osteoarthritic changes of the glenohumeral and acromioclavicular joints. Capsule and soft tissues: There is some thickening and pericapsular edema of the inferior glenohumeral ligament (05/05). Partial fat replacement of the rotator interval. Long head biceps tendon is intact, with tendon sheath fluid. Sublabral foramen versus focal tear of the anterior superior labrum. Smooth boundaries favor the former. IMPRESSION: Thickening/pericapsular edema of the inferior glenohumeral ligament and partial rotator interval fat replacement can be seen with reported adhesive capsulitis. Limited evaluation on this non arthrographic study. Focal anterior superior labral tear versus sublabral foramen, the latter is favored. Supraspinatus and subscapularis tendinosis, the latter with mild interstitial tearing. Mild osteoarthritic changes and joint effusion, with some decompressing into the long head biceps tendon sheath. Dictated by: Akbar Aparicio M.D. on 05/27/2022 at 16:44 Approved by: Akbar Aparicio M.D. on 05/27/2022 at 16:59
== END ==
PROVIDERS: PCP Registered Nurse; Referring Provider Orthopaedic Surgery; Visit Provider Orthopaedic Surgery
DX: M75.02 Adhesive capsulitis of left shoulder (principal)
CPT/HCPCS: 73221

== ENCOUNTER → 2022-10-27 11:58 | Outpatient (CLI) | payer MEDICARE, MEDICAID, SELFPAY ==
--- NOTE | 2022-10-27 | DI.RAD.S_ITS ---
PROCEDURE: XR CHEST 2V INDICATIONS: SHORTNESS OF BREATH TECHNIQUE: 2 views of the chest were acquired. COMPARISON: [facility], CR, XR CHEST 2V, 11/12/2021, 7:43. FINDINGS: Surgical changes and devices: None. Lungs and pleura: Lungs are clear. No pleural effusions or pneumothorax. Mediastinum: Mediastinal contours are normal. Heart size is normal. Bones and chest wall: No suspicious bony abnormalities. Soft tissues appear unremarkable. IMPRESSION: No acute cardiopulmonary disease process. Dictated by: Chanda Vázquez MD, PhD on 10/27/2022 at 14:00 Approved by: Chanda Vázquez MD, PhD on 10/27/2022 at 14:01
--- NOTE | 2022-10-27 | DI.CT.S_ITS ---
PROCEDURE: CT ABDOMEN PELVIS WO CON INDICATIONS: AWAITING ORGAN TRANSPLANT TECHNIQUE: Noncontrast 5 mm thick sections acquired from the diaphragms to the symphysis. 5 mm coronal and sagittal reformats were then performed. For radiation dose reduction, the following was used: automated exposure control, adjustment of mA and/or kV according to patient size. COMPARISON: [facility], CT, CT ABDOMEN PELVIS WO [facility], 12/14/2021, 18:38. FINDINGS: Image quality: Excellent. ABDOMEN: Lung bases: Lung bases are clear. Heart size is normal. Coronary atherosclerotic vascular calcifications are noted. Solid organs: Liver is normal in size. Gallbladder is unremarkable . Pancreas is normal in contours. Spleen is normal in size. No adrenal nodules. Bilateral renal atrophy as before. No hydronephrosis or urolithiasis. Extensive atherosclerotic calcifications of the bilateral renal arteries. Peritoneum and bowel: Unenhanced bowel loops demonstrate normal wall thickness and caliber. A few tiny locules of air likely related to dialysis catheter. Moderate amount of scattered ascites without evidence to suggest ocular a quiroz or organized fluid collection. Peritoneal dialysis catheter is unchanged in position with looped distal segment terminating in the lower pelvis. Nodes and vessels: No retroperitoneal or mesenteric adenopathy by size criteria. Aorta and inferior vena cava are normal in caliber. Diffuse, extensive visceral arterial calcifications. Atherosclerotic calcifications of the abdominal aorta. Miscellaneous: No ventral hernias. PELVIS: Genitourinary: Unremarkable. Miscellaneous: No inguinal hernias or adenopathy. Subcutaneous soft tissue calcifications of the inferior periumbilical anterior abdominal wall unchanged. These are likely related to injection granulomas. Bones: No suspicious bony lesions. No acute vertebral body compression fractures. IMPRESSION: 1. Stable CT evaluation of the abdomen and pelvis. No acute abnormalities identified. 2. Stable appearance of peritoneal dialysis catheter with scattered ascites and a few tiny locules of free air in the upper abdomen. This is felt to be related to peritoneal dialysis. 3. Extensive vascular calcifications, not significantly changed. Dictated by: Damian Pedroza M.D. on 10/27/2022 at 15:21 Approved by: Damian Pedroza M.D. on 10/27/2022 at 15:28
--- NOTE | 2022-10-27 | DI.ECHO.S_ITS ---
[facility]---------+ [facility] +---------+ : : [address] : : : : [id number] : : : : Phone: [phone]+ Echocardiogram Report + + :Name: TONIE GARSIA Study Date: 10/27/2022 Height: 63 in : :[facility] ReadingLocation: Weight: 122 lb : : Gender: Female BSA: 1.6 m2 : :: 1980 Age: 41 yrs BP: 168/99 mmHg: :Reason For Study: Awaiting kidney transplant : :Ordering Physician: PETAR, : :BRYCE Performed By: Alexandria Cramer : :Referring: BRYCE DAVEY : + + Interpretation Summary The left ventricle is normal in size and wall thickness. Left ventricular systolic function appears normal without focal wall motion abnormalities. The ejection fraction is estimated to be 55-60%. Diastolic parameters suggest a relaxation abnormality of the left ventricle, consistent with probable normal filling pressures. The right ventricle is normal in size and function. The left atrial size is normal. The right atrium is normal in size. There is no significant valvular heart disease. The aortic root is normal size. No significant changes since prior study on 11/12/2021. Procedure: A two-dimensional transthoracic echocardiogram with color flow and Doppler was performed. The patient was in sinus rhythm with heart rates between 75-80 bpm during the exam. Left Ventricle: The left ventricle is normal in size and wall thickness. Left ventricular systolic function appears normal without focal wall motion abnormalities. The ejection fraction is estimated to be 55-60%. Diastolic parameters suggest a relaxation abnormality of the left ventricle, consistent with probable normal filling pressures. Right Ventricle: The right ventricle is normal in size and function. Atria: The left atrial size is normal. The right atrium is normal in size. There is no Doppler evidence for an interatrial shunt. Mitral Valve: The mitral valve is normal in structure and function. There is trace mitral regurgitation. Aortic Valve: The aortic valve is normal in structure and function. There is trace aortic regurgitation. Tricuspid Valve: The tricuspid valve is normal in structure and function. There is trace tricuspid regurgitation. Pulmonic Valve: The pulmonic valve leaflets are thin and pliable; valve motion is normal. There is mild pulmonic regurgitation. There is no significant valvular heart disease. Great Vessels: The aortic root is normal size. The dimensions of the ascending aorta are normal. The IVC is of normal diameter and collapses greater than 50% with a sniff. This suggests a low right atrial pressure of 3 mm Hg. Pericardium/ Pleura There is no pericardial effusion. MMode/2D Measurements & Calculations LVIDd: 3.4 cm LVOT diam: 1.7 cm LVIDs: 2.3 cm Ao root diam: 2.5 cm FS: 32.4 % asc Aorta Diam: 3.4 cm EPSS: 0.70 cm IVSd: 1.0 cm LVPWd: 0.90 cm LV caldwell. diameter/BSA (cm/m^2): 2.2 LV sys. diameter/BSA (cm/m^2): 1.5 LA dimension: 3.3 cm RA long axis: 3.6 cm LA A2 area: 10.5 cm2 RA area: 8.6 cm2 LA A4 area: 12.1 cm2 RA vol: 17.4 ml LA length (vol): 3.9 cm RA : 11.1 ml/m2 LA vol: 27.5 ml LA vol index: 17.6 ml/m2 LVLs ap4: 4.6 cm LVLd ap2: 5.7 cm LVLs ap2: 4.9 cm TAPSE_phl: 2.3 cm Doppler Measurements & Calculations Ao V2 max: 138.0 cm/sec LVOT Max Alberto: 103.0 cm/sec Ao V2 mean: 101.0 cm/sec LV V1 max P.2 mmHg Ao max P.0 mmHg LV V1 VTI: 21.0 cm Ao mean P.0 mmHg LUIS ANGEL(I,D): 1.8 cm2 Ao V2 VTI: 26.1 cm LUIS ANGEL(V,D): 1.7 cm2 sev ratio: 0.80 LUIS ANGEL indexed to BSA (cm^2/m^2): 1.2 MV E max alberto: 70.4 cm/sec TR max alberto: 201.0 cm/sec MV A max alberto: 111.0 cm/sec TR max P.2 mmHg MV E/A: 0.63 PA V2 max: 114.0 cm/sec Med Peak E' Alberto: 4.8 cm/sec PA V2 mean: 76.1 cm/sec E/E' med: 14.5 PA mean P.0 mmHg Lat Peak E' Alberto: 6.7 cm/sec E/E' lat: 10.6 E/e' average: 12.6 MV dec time: 0.25 sec MVA(VTI): 1.7 cm2 MV V2 mean: 62.8 cm/sec SV(LVOT): 47.7 ml MV mean P.0 mmHg MV V2 VTI: 27.6 cm AV VR_phl: 0.75 LUIS ANGEL(VTI)/BSA_phl: 1.2 Reading Physician:06:54 PM
== END ==
PROVIDERS: PCP Nurse Practitioner; Referring Provider Specialist; Visit Provider Specialist
DX: Z76.82 Awaiting organ transplant status (principal); I37.1 Nonrheumatic pulmonary valve insufficiency; I70.1 Atherosclerosis of renal artery; I70.0 Atherosclerosis of aorta; R06.02 Shortness of breath; I25.10 Atherosclerotic heart disease of native coronary artery without angina pectoris; Z95.828 Presence of other vascular implants and grafts
CPT/HCPCS: 71046; 74176; 93306

== ENCOUNTER 2022-12-24 20:05 | Emergency (ER) | payer MEDICARE, OTHER, MEDICAID, SELFPAY ==
[2022-12-24] VITALS (13 sets, daily range): BP systolic 147–239; BP diastolic 84–129; PULSE 80–95; RESP 13–24; TEMP 37.2; O2SAT 98–100; BMI 22.1
[2022-12-24] MEDS: LABETALOL 20 MG/4 ML SYRINGE 10 MG IV (20:25)
--- NOTE | 2022-12-24 20:45 | DI.RAD.S_ITS ---
PROCEDURE: XR CHEST 1V INDICATIONS: chest pain TECHNIQUE: One view of the chest was acquired. COMPARISON: [facility], CR, XR CHEST 2V, 10/27/2022, 12:20. FINDINGS: Surgical changes and devices: None. Lungs and pleura: Lungs are clear. No pleural effusions or pneumothorax. Mediastinum: Mediastinal contours appear normal. Heart size is normal. Bones and chest wall: No suspicious bony lesions. Overlying soft tissues appear unremarkable. IMPRESSION: 1. No acute cardiopulmonary disease. Dictated by: Edmond Irwin M.D. on 12/24/2022 at 21:50 Approved by: Edmond Irwin M.D. on 12/24/2022 at 21:53
--- NOTE | 2022-12-24 20:49 | ED_ITS ---
HPI - Syncope General Chief Complaint: Syncope Stated Complaint: syncopal episode Time Seen by Provider: 12/24/22 20:06 Source: patient Mode of arrival: Ambulatory Limitations: no limitations History of Present Illness HPI narrative: 41-year-old female smoker with history of diabetes and peritoneal dialysis presents with chief complaint of a near syncopal episode prior to her arrival. She states she has been in her normal state of health and denies any recent nausea, vomiting or diarrhea. She is had no fever or chills and denies any chest pain, shortness of breath or abdominal pain. She does not make urine anymore and has had no change in her peritoneal dialysis regimen at home. She is managed by Dr. Rainey in [place]. She states that she was in the kitchen doing dishes when she started feeling flushed and lightheaded and had not recently changed position, she denies any palpitations or other symptoms. She states that she did not have a full syncopal episode but was able to ease herself to the ground. Her episode lasted 1 minute or so overall and she is largely at her baseline now. She admits that she is been remarkably anxious lately and having poor sleep. She had received some information that (per the patient) there is some concern about possible calcifications of blood vessels that may put her ability to remain on the transplant list at risk. Related Data Home Medications Medication Instructions Recorded Confirmed albuterol sulfate 90 mcg/actuation 1 puff inhalation DIRECTED 11/09/18 11/17/19 aerosol inhaler insulin glargine 100 unit/mL 0 unit SUBCUT DIRECTED 11/09/18 subcutaneous solution insulin lispro 100 unit/mL 0 unit SUBCUT DIRECTED 11/09/18 subcutaneous solution brimonidine 0.2 %-timolol 0.5 % 1 drp ophthalmic (eye) BID 11/17/19 11/17/19 eye drops (Combigan) lisinopril 10 mg tablet 10 mg PO DAILY 11/17/19 11/17/19 Previous Rx's Medication Instructions Recorded lidocaine 5 % topical patch 1 patch topical DAILY #15 ea 11/09/18 alprazolam 0.5 mg tablet (Xanax) 0.5 mg PO BID PRN anxiety #10 tabs 12/24/22 Allergies Allergy/AdvReac Type Severity Reaction Status Date / Time No Known Drug Allergies Allergy Verified 11/17/19 16:28 Review of Systems Review of Systems Narrative: GENERAL: Denies chills, fatigue, malaise, fever, sweats. HEENT: Denies sinus pain, ear pain, sore throat, difficulty swallowing, dizziness. RESPIRATORY: Denies dyspnea, cough, wheezing, hemoptysis, sputum. CARDIOVASCULAR: See HPI GASTROINTESTINAL: Denies nausea, vomiting, abdominal pain, diarrhea, constipation, melena. : Denies dysuria, frequency, incontinence, hematuria, urinary retention. MUSCULOSKELETAL: denies weakness, joint pain, or bony pain SKIN: Denies rash, skin lesions, or other NEUROLOGIC: Denies weakness, headache, numbness, change in speech, confusion, seizures, incoordination. PSYCHIATRIC: No concerning psychosocial issues. 12 point review of systems is negative except for those stated above Patient History Medical History Type 1 diabetes Surgical History H/O eye surgery Social History Smoking Status: Former smoker Smoking Status: Former smoker Substance Use Type: marijuana Exam Initial Vital Signs Initial Vital Signs: Vital Signs Temperature 99 F 12/24/22 20:14 Pulse Rate 90 12/24/22 20:14 Respiratory Rate 18 12/24/22 20:14 Blood Pressure 220/118 H 12/24/22 20:14 Pulse Oximetry 100 12/24/22 20:14 Oxygen Delivery Method Room Air 12/24/22 20:14 Course Orders Ordered: Discontinued Medications Acetaminophen (Acetaminophen 325 Mg Tablet) 975 mg PO NOW ONE Stop: 12/24/22 23:08 Last Admin: 12/24/22 23:20 Dose: 975 mg Documented By: BS Hydralazine HCl (Hydralazine 20 Mg/Ml Vial) 20 mg IV NOW ONE Stop: 12/24/22 22:52 Last Admin: 12/24/22 23:00 Dose: 20 mg Documented By: BS Labetalol HCl (Labetalol 20 Mg/4 Ml Syringe) 10 mg IV NOW ONE; Protocol Stop: 12/24/22 22:18 Last Admin: 12/24/22 20:25 Dose: 10 mg Documented By: BS Lorazepam (Lorazepam 0.5 Mg Tablet) 0.5 mg PO NOW ONE Stop: 12/24/22 23:20 Last Admin: 12/24/22 23:23 Dose: 0.5 mg Documented By: BS Consultations Consultation #1: Discussed with on-call Nephrology [facility]. We have reviewed patient's history and physical including her labs which are at her baseline, no need for indication, no evidence of nephrologic emergency at this time Vital Signs Vital signs: Vital Signs - 8 hr 12/24/22 20:14 Temperature 99 F Pulse Rate 90 Respiratory Rate 18 Blood Pressure 220/118 H Pulse Oximetry 100 Oxygen Delivery Method Room Air MDM - Syncope Lab Data 12/24/22 20:35 12/24/22 20:35 Labs: Lab Results 12/24/22 12/24/22 12/24/22 Range/Units 20:35 20:35 20:35 WBC 8.0 (4.5-11.0) X10^3/uL RBC 4.64 (4.0-5.2) X10^6/uL Hgb 12.8 (12.0-16.0) g/dL Hct 39.4 (36-46) % MCV 85.0 (80-100) fL MCH 27.6 (26-34) PG MCHC 32.5 (30-36) % RDW 17.0 H (11.6-14.8) % Plt Count 265 (150-400) X10^3/uL Neut % (Auto) 62.4 (50-75) % Lymph % (Auto) 25.3 (25-40) % Mckenzie % (Auto) 9.4 (3-14) % Eos % (Auto) 2.1 (2-4) % Baso % (Auto) 0.8 (0-2) % Neut # (Auto) 5000 (2147-7783) /uL Lymph # (Auto) 2000 (7439-7785) /uL Mckenzie # (Auto) 700 (0-900) /uL Eos # (Auto) 200 (0-450) /uL Baso # (Auto) 100 (0-100) /uL PT 8.5 L (10.1-12.7) SECONDS INR 0.7 L (0.9-1.3) APTT 32 (26-36) SECONDS Sodium 129 L (137-145) mmol/L Potassium 3.9 (3.4-5.1) mmol/L Chloride 96 L (98-107) mmol/L Carbon Dioxide 19 L (22-32) mmol/L BUN 44 H (7-17) mg/dL Creatinine 14.7 H* (0.52-1.04) mg/dL Estimated GFR 3 L (>60) mL/min BUN/Creatinine Ratio 3.0 L (6-22) Glucose 138 H (70-100) mg/dL Calcium 9.1 (8.4-10.2) mg/dL Magnesium 3.7 H (1.6-2.3) mg/dL Total Bilirubin 0.5 (0.2-1.3) mg/dL AST 24 (14-36) IU/L ALT 29 (<35) IU/L Alkaline Phosphatase 104 (38-126) U/L Total Creatine Kinase 74 (30-135) U/L CK-MB (CK-2) TNP CK-MB (CK-2) Rel Index TNP Troponin I 0.023 (0.01-0.034) ng/mL Total Protein 5.9 L (6.3-8.2) g/dL Albumin 3.3 L (3.5-5.0) g/dL Globulin 2.6 (1.7-4.1) g/dL Albumin/Globulin Ratio 1.3 (1.0-2.8) Lipase 77 (23-300) U/L MDM Narrative Medical decision making narrative: CC: 41-year-old female presents with a near syncopal episode with prodromal symptoms Complicating co-morbidities: Chronic kidney disease with peritoneal dialysis Data collected from: Patient Medical records reviewed: Prior notes reviewed in our EMR Differential considered, but not limited to: Orthostasis, vasovagal, dehydration, stress response, electrolyte abnormality, Exam documented above, pertinent findings include: Versus other patient is awake, alert and oriented, no signs of dehydration, fluid overload, respiratory distress Lab Test results independently reviewed as above. Pertinent findings: No leukocytosis or left shift, no evidence of anemia, electrolyte abnormalities are at her baseline including creatinine of 14.7 Independently reviewed EKG as above Imaging studies independently reviewed: Chest x-ray without acute findings Consultations: Nephrology in [place] as noted above Treatments: Labetalol, hydralazine, benzodiazepines Re-evaluations: Improved symptoms and vital signs Discussion: Patient with chronic illness presents with a near syncopal episode. She had appropriate warning signs prodromal symptoms including flushing, warm sensation and narrowing of visual field, she was lightheaded briefly and eased herself to the ground. History and physical exam are very reassuring, labs and imaging without significant abnormalities that would require specific interve ntion. After extensive discussion at the bedside it would seem likely that there are elements of anxiety, stress and insomnia playing a role, no significant suspicion of an emergent condition requiring specific or immediate intervention. Disposition: see below, along with detailed discharge instructions that have been reviewed with patient as well as indications for ED re-evaluation and additional outpatient follow up Discharge Plan Departure Patient Disposition: Home Clinical Impression: Near syncope Instructions: DI for Syncope in Adults (Fainting) Activity Restrictions/Additional Instructions: *You have been diagnosed with [ Near syncope] *What to do: *Please continue to take your regular medications as directed. [x ] New medication prescriptions sent to your pharmacy: [ ] [ ] New medication written as a paper prescription [ ] No new medications given *Please follow up with your primary care provider in 2-3 days, call for an appointment. Let them know you were seen in the Emergency Department and that we ask that you be seen in follow up. We will electronically transmit a record of today's note if your PCP is in our system *If you do not have a primary care provider please contact the [facility] Resource line at [phone]. They will ask some questions about your medical history and help get you set up with a doctor in the community. *Return to Emergency Department if you should have any new, worsening or concerning symptoms, such as [fever greater than 101 F, shaking chills, worsening pain, persistent vomiting or other bothersome symptoms] Prescriptions: New alprazolam [Xanax] 0.5 mg tablet 0.5 mg PO BID PRN (Reason: anxiety) Qty: 10 0RF No Action lisinopril 10 mg tablet 10 mg PO DAILY Patient Comments: take 1 tablet by mouth once daily Combigan 0.2-0.5 % drops 1 drp ophthalmic (eye) BID Lantus U-100 Insulin 100 unit/mL solution 0 unit subcut DIRECTED insulin lispro [Humalog U-100 Insulin] 100 unit/mL solution 0 unit subcut DIRECTED albuterol sulfate [ProAir HFA] 90 mcg/actuation HFA aerosol inhaler 1 puff inhalation DIRECTED lidocaine 5 % adhesive patch,medicated 1 patch TOP DAILY Qty: 15 0RF Rx Instructions: leave on most painful area for 12 hrs Referrals: Marias Farooq ARNP [Primary Care Provider] - Stand Alone Forms: Patient Portal/API
[2022-12-24 20:53] LABS: Add Manual Diff / Slide Review NO; Basophils Absolute Auto 100 /uL (0-100); Basophils Percent Auto 0.8 % (0-2); Eosinophils Absolute Auto 200 /uL (0-450); Eosinophils Percent Auto 2.1 % (2-4); Hematocrit 39.4 % (36-46); Hemoglobin 12.8 g/dL (12.0-16.0); Lymphocytes Absolute Auto 2000 /uL (1100-4500); Lymphocytes Percent Auto 25.3 % (25-40); Mean Corpuscular HGB Conc 32.5 % (30-36); Mean Corpuscular Hemoglobin 27.6 PG (26-34); Monocytes Absolute Auto 700 /uL (0-900); Monocytes Percent Auto 9.4 % (3-14); Neutrophils Absolute Auto 5000 /uL (1500-7000); Neutrophils Percent Auto 62.4 % (50-75); Platelet Count 265 X10^3/uL (150-400); Red Blood Cell Count 4.64 X10^6/uL (4.0-5.2)
[2022-12-24 21:02] LABS: INR 0.7 (0.9-1.3); Prothrombin Time 8.5 SECONDS (10.1-12.7)
[2022-12-24 21:05] LABS: PTT Partial Thromboplastin Tim 32 SECONDS (26-36)
[2022-12-24 21:07] LABS: Alanine Aminotransferase 29 IU/L (<35); Albumin 3.3 g/dL (3.5-5.0); Albumin Globulin Ratio 1.3 (1.0-2.8); Alkaline Phosphatase 104 U/L (38-126); Aspartate Aminotransferase 24 IU/L (14-36); Bilirubin Total 0.5 mg/dL (0.2-1.3); Blood Urea Nitrogen 44 mg/dL (7-17); Calcium 9.1 mg/dL (8.4-10.2); Carbon Dioxide 19 mmol/L (22-32); Chloride 96 mmol/L (98-107); Creatine Kinase 74 U/L (30-135); Globulin 2.6 g/dL (1.7-4.1); Glucose 138 mg/dL (70-100); Lipase 77 U/L (23-300); Magnesium 3.7 mg/dL (1.6-2.3); Potassium 3.9 mmol/L (3.4-5.1); Sodium 129 mmol/L (137-145); Total Protein 5.9 g/dL (6.3-8.2)
[2022-12-24 21:13] LABS: HEMOLYSIS < 15 (0-50)
[2022-12-24 21:19] LABS: Troponin I 0.023 ng/mL (0.01-0.034)
[2022-12-24 21:30] LABS: Estimated Glomerular Filt Rate 3 mL/min (>60)
[2022-12-24] MEDS: HYDRALAZINE 20 MG/ML VIAL IV (23:00)
[2022-12-24] MEDS: ACETAMINOPHEN 325 MG TABLET 975 MG PO (23:20)
[2022-12-24] MEDS: LORazepam 0.5 MG TABLET PO (23:23)
== END 2022-12-24 23:30 | disposition home or self-care (01) ==
PROVIDERS: Emergency Provider Emergency Medicine; PCP Nurse Practitioner
DX: R55 Syncope and collapse (principal)
CPT/HCPCS: 36415; 71045; 80053; 82550; 83690; 83735; 84484; 85025; 85610; 85730; 93005; 96374; 96375; 99284; J0360

== ENCOUNTER 2023-01-14 17:34 | Emergency (ER) | payer MEDICARE, MEDICAID, SELFPAY ==
[2023-01-14 17:45] VITALS: BP 120/88; PULSE 89; RESP 18; TEMP 36.6; O2SAT 99; BMI 20.8
--- NOTE | 2023-01-14 17:51 | ED.BACK ---
HPI - Back Pain/Injury <Cammie Manning PA-C - Last Filed: 01/14/23 19:49> General Chief Complaint: Back Pain/Injury Stated Complaint: back pain s/p twist injury Time Seen by Provider: 01/14/23 17:43 Source: patient History of Present Illness HPI Narrative: 42-year-old female with history of diabetes, kidney failure with nightly peritoneal dialysis presents with concern for upper back pain. Patient states about 4 days ago she [place] and stepped in a hole with her left leg, initially she had some leg discomfort but her back was not bothering her but the next day she started having upper mid back pain and she thinks that it is probably connected. She states that her pain is worse with any movement she has tried laying flat, she has tried stretching and different position changes without relief. She states she has difficulty describing how the pain feels she says it is constant but that when she moves it gets much worse and sometimes becomes very severe with movement. She says her leg discomfort has improved but her back pain is now very bothersome. She has tried some opioid medication she was previously prescribed for a peritonitis which helped a little bit. Patient states she hopes to have something to help with muscle spasms possibly a muscle relaxer for home but she is not here for pain meds she says she wants to know what is wrong and to get an x-ray done. She was originally seen at the walk-in clinic today and was advised that they are not able to get an x-ray done in time to get her results today given their hours and sent to the emergency department. She denies change in bowel habit, numbness or tingling in her extremities, saddle paresthesia, chest pain, dizziness, shortness of breath, or any other symptoms. Related Data Home Medications Medication Instructions Recorded Confirmed albuterol sulfate 90 mcg/actuation 1 puff inhalation DIRECTED 11/09/18 11/17/19 aerosol inhaler insulin glargine 100 unit/mL 0 unit SUBCUT DIRECTED 11/09/18 subcutaneous solution insulin lispro 100 unit/mL 0 unit SUBCUT DIRECTED 11/09/18 subcutaneous solution brimonidine 0.2 %-timolol 0.5 % 1 drp ophthalmic (eye) BID 11/17/19 11/17/19 eye drops (Combigan) lisinopril 10 mg tablet 10 mg PO DAILY 11/17/19 11/17/19 Previous Rx's Medication Instructions Recorded lidocaine 5 % topical patch 1 patch topical DAILY #15 ea 11/09/18 alprazolam 0.5 mg tablet (Xanax) 0.5 mg PO BID PRN anxiety #10 tabs 12/24/22 baclofen 10 mg tablet 10 mg PO TID muscle spasms #30 tabs 01/14/23 Allergies Allergy/AdvReac Type Severity Reaction Status Date / Time No Known Drug Allergies Allergy Verified 11/17/19 16:28 Review of Systems <Cammie Manning PA-C - Last Filed: 01/14/23 19:49> Review of Systems Narrative: See HPI Patient History <Cammie Manning PA-C - Last Filed: 01/14/23 19:49> Medical History Type 1 diabetes Surgical History H/O eye surgery Social History Smoking Status: Former smoker Smoking Status: Former smoker Substance Use Type: marijuana Exam <Cammie Manning PA-C - Last Filed: 01/14/23 19:49> Narrative Exam Narrative: GENERAL: 42 year old patient appears stated age. Well-developed patient, in mild distress. HEAD: Atraumatic. Normocephalic. EYES: Pupils equal round and reactive. Extraocular motions intact. No scleral icterus. No injection or drainage. ENT: Nose without bleeding, purulent drainage. Airway patent. NECK: Trachea midline. Non tender CARDIOVASCULAR: Regular rate and rhythm without murmurs, gallops, or rubs. RESPIRATORY: Clear to auscultation. Breath sounds equal bilaterally. No wheezes, rales, or rhonchi. GASTROINTESTINAL: Abdomen soft, non-tender, nondistended. EXTREMITIES: Strength at the knee and hip is intact 5/5 bilaterally with flexion and extension active, without increased thoracic back pain. No edema or joint tenderness. BACK: Patient has midline spinal tenderness in between the vertebrae between T6 and T10, she has some paraspinal tenderness more prominent on the right in the same region. No bruising or swelling noted. Otherwise Nontender without deformity or crepitance. No flank tenderness. NEURO: AOx3. SKIN: No rash or erythema of visible areas Initial Vital Signs Initial Vital Signs: Vital Signs Temperature 98 F 01/14/23 17:45 Pulse Rate 89 01/14/23 17:45 Respiratory Rate 18 01/14/23 17:45 Blood Pressure 120/88 01/14/23 17:45 Pulse Oximetry 99 01/14/23 17:45 Oxygen Delivery Method Room Air 01/14/23 17:45 <William Edwards DO - Last Filed: 01/15/23 03:41> Initial Vital Signs Initial Vital Signs: Vital Signs Temperature 98 F 01/14/23 17:45 Pulse Rate 89 01/14/23 17:45 Respiratory Rate 18 01/14/23 17:45 Blood Pressure 120/88 01/14/23 17:45 Pulse Oximetry 99 01/14/23 17:45 Oxygen Delivery Method Room Air 01/14/23 17:45 Course <Cammie Manning PA-C - Last Filed: 01/14/23 19:49> Course Course Narrative: Did discuss this patient with attending physician Dr. Edwards regarding whether to obtain CT versus x-ray, who advises x-ray can be pursued for further evaluation but CT is not warranted based on history exam. Orders Ordered: ED Orders 01/14/23 18:25 XR thoracic spine 3V Stat Vital Signs Vital signs: Vital Signs - 8 hr 01/14/23 17:45 Temperature 98 F Pulse Rate 89 Respiratory Rate 18 Blood Pressure 120/88 Pulse Oximetry 99 Oxygen Delivery Method Room Air <DO Chanel Torres Last Filed: 01/15/23 03:41> Orders Ordered: ED Orders 01/14/23 18:25 XR thoracic spine 3V Stat Vital Signs Vital signs: Vital Signs - 8 hr 01/14/23 17:45 Temperature 98 F Pulse Rate 89 Respiratory Rate 18 Blood Pressure 120/88 Pulse Oximetry 99 Oxygen Delivery Method Room Air MDM - Back Pain/Injury <MIGUEL Hancock Last Filed: 01/14/23 19:49> Differential Diagnosis Differential diagnosis: Likely thoracic back pain and other (muscle strain thoracic) Medical Records Attestation: I reviewed the patient's medical records. Imaging Data XR thoracic spine: Radiologist's Impression: XRay Report Signed Patient: Jasmeet Joy MR#: [id number] : 1980 Acct:[id number] Age/Sex: 42 / F Date of Service: 01/14/23 Loc: ED Accession Number: [id number] ?? Procedure: XR thoracic spine 3V Ordering Provider: Cammie Manning P.A-C PROCEDURE:? XR THORACIC SPINE 3V ? INDICATIONS:? mid thoracic pain/tender T6-T10, stepped in hole ? TECHNIQUE:? 3 views of the thoracic spine were acquired.? ? COMPARISON:? None. ? FINDINGS:? ? Bones:? No fractures or dislocations.? No suspicious bony lesions.? 12 pairs of ribs are noted, and appear intact where visualized.? ? Soft tissues:? No paravertebral stripe thickening.? ? ? IMPRESSION:? No acute thoracic spine compression fracture or spondylolisthesis. ? ? Dictated by: Stuart King M.D. on 01/14/2023 at 18:00 ? ? Approved by: Stuart King M.D. on 01/14/2023 at 18:02?? Treatment and disposition Shared decision making:: Shared decision making was used in determining the patient's plan for evaluation and outpatient follow up MDM Narrative Medical decision making narrative: 42-year-old female with history of diabetes, kidney failure with peritoneal dialysis presents with concern for thoracic back pain present for 3 days after she stepped in a hole with her left leg 4 days ago. Patient's history and exam are consistent with muscle spasming, x-rays obtained for further evaluation thoracic x-ray returns without remarkable findings. Based on exam and history low suspicion for other intra-abdominal or intrathoracic/vascular process, also patient's history and exam are not suggestive of a urologic process, and patient no longer makes urine. She has had no other symptoms, history or concerning exam findings that would be consistent with infectious process and labs are not obtained. Patient's exam was consistent with back muscle spasming, given tenderness on palpation as well as her pain worsens with movement, patient does endorse concern that she has not had pain of this nature before, discussed plan again with her at discharge, she is interested in a referral to Orthopedics for further evaluation, this is placed today as well. Prescription for baclofen today, she is advised she can continue [id number] pain medicines as needed, advised regarding return precautions, emergency department precautions, all questions answered. Discharge Plan Departure Patient Disposition: Home Clinical Impression: Thoracic back pain, Muscle spasm of back Activity Restrictions/Additional Instructions: Thank you for letting us be part of your care in the emergency department. Based on your exam and your history as well as your x-ray today I think it is most likely that you are suffering from back spasming and muscle tightness in your upper back. We did do a x-ray of your thoracic spine today which did not show any specific abnormalities there. I have prescribed a muscle relaxer for you, be cautious about driving or operating any equipment after taking it, also recommend [id number] Tylenol and ibuprofen and close follow-up with your primary care provider. Of course if you have new or worsening symptoms do not hesitate to seek re-evaluation. There is no evidence of an emergent or life threatening illness at this time, but follow up with your doctor in 1-2 days is recommended nonetheless to continue to rule out serious underlying causes of your symptoms. Please call the office for an appointment. Please return to the Emergency Department for any worsening or persistent symptoms. Please take medications as directed. Prescriptions: New baclofen 10 mg tablet 10 mg PO TID Qty: 30 1RF No Action lisinopril 10 mg tablet 10 mg PO DAILY Patient Comments: take 1 tablet by mouth once daily Combigan 0.2-0.5 % drops 1 drp ophthalmic (eye) BID alprazolam [Xanax] 0.5 mg tablet 0.5 mg PO BID PRN (Reason: anxiety) Qty: 10 0RF Lantus U-100 Insulin 100 unit/mL solution 0 unit subcut DIRECTED insulin lispro [Humalog U-100 Insulin] 100 unit/mL solution 0 unit subcut DIRECTED albuterol sulfate [ProAir HFA] 90 mcg/actuation HFA aerosol inhaler 1 puff inhalation DIRECTED lidocaine 5 % adhesive patch,medicated 1 patch TOP DAILY Qty: 15 0RF Rx Instructions: leave on most painful area for 12 hrs Referrals: Marisa Farooq ARNP [Primary Care Provider] - Camacho Chavez MD [Physician] - (Acute thoracic back pain, neg XR) Stand Alone Forms: Patient Portal/API <William Edwards DO - Last Filed: 01/15/23 03:41> Cosign ED Attending Cosignature Attestation: I was immediately available in the department for consultation. Documentation has been reviewed. I agree with assessment and plan.
--- NOTE | 2023-01-14 18:25 | DI.RAD.S_ITS ---
PROCEDURE: XR THORACIC SPINE 3V INDICATIONS: mid thoracic pain/tender T6-T10, stepped in hole TECHNIQUE: 3 views of the thoracic spine were acquired. COMPARISON: None. FINDINGS: Bones: No fractures or dislocations. No suspicious bony lesions. 12 pairs of ribs are noted, and appear intact where visualized. Soft tissues: No paravertebral stripe thickening. IMPRESSION: No acute thoracic spine compression fracture or spondylolisthesis. Dictated by: Stuart King M.D. on 01/14/2023 at 18:00 Approved by: Stuart King M.D. on 01/14/2023 at 18:02
== END 2023-01-14 19:43 | disposition home or self-care (01) ==
PROVIDERS: Emergency Provider Student in an Organized Health Care Education/Training Program; PCP Nurse Practitioner
DX: M54.6 Pain in thoracic spine (principal); M62.830 Muscle spasm of back; Z79.899 Other long term (current) drug therapy
CPT/HCPCS: 72072; 99281; 99283

== ENCOUNTER → 2023-06-19 10:24 | Outpatient (CLI) | payer MEDICARE, MEDICAID, SELFPAY ==
[2023-06-19 11:04] LABS: Add Manual Diff / Slide Review NO; Basophils Absolute Auto 100 /uL (0-100); Basophils Percent Auto 2.2 % (0-2); Eosinophils Absolute Auto 400 /uL (0-450); Hematocrit 42.6 % (36-46); Hemoglobin 13.3 g/dL (12.0-16.0); Lymphocytes Absolute Auto 500 /uL (1100-4500); Lymphocytes Percent Auto 15.1 % (25-40); Mean Corpuscular HGB Conc 31.1 % (30-36); Mean Corpuscular Hemoglobin 24.7 PG (26-34); Mean Corpuscular Volume 79.2 fL (80-100); Monocytes Absolute Auto 900 /uL (0-900); Monocytes Percent Auto 24.8 % (3-14); Neutrophils Absolute Auto 1700 /uL (1500-7000); Neutrophils Percent Auto 47.9 % (50-75); Platelet Count 314 X10^3/uL (150-400); Red Blood Cell Count 5.37 X10^6/uL (4.0-5.2); Red Cell Distribution Width 16.6 % (11.6-14.8); White Blood Cell Count 3.5 X10^3/uL (4.5-11.0)
[2023-06-22 19:53] LABS: CMV DNA, Quant Real Time PCR Negative (Negative)
[2023-07-02 13:17] LABS: Tacrolimus 6.6
== END ==
PROVIDERS: PCP Nurse Practitioner; Referring Provider Internal Medicine; Visit Provider Internal Medicine
DX: Z94.0 Kidney transplant status (principal); T86.10 Unspecified complication of kidney transplant
CPT/HCPCS: 36415; 80197; 85025; 87497

== ENCOUNTER 2024-04-07 10:50 | Emergency (ER) | payer MEDICARE, MEDICAID, SELFPAY ==
[2024-04-07 10:55] VITALS: BP 151/89; PULSE 78; RESP 14; TEMP 36.4; O2SAT 98; BMI 21.9
--- NOTE | 2024-04-07 11:52 | DI.CT.S_ITS ---
PROCEDURE: CT HEAD/BRAIN WO CON INDICATIONS: MEZA, NEW PATTERN TECHNIQUE: Noncontrast 4.5 mm thick angled axial sections acquired from the foramen magnum to the vertex, with coronal and sagittal reformats. For radiation dose reduction, the following was used: automated exposure control, adjustment of mA and/or kV according to patient size. COMPARISON: None. FINDINGS: Image quality: Diagnostic. CSF spaces: Basal cisterns are patent. No extra-axial fluid collections. Ventricles are normal in size and shape. Brain: No midline shift. No intracranial masses or hemorrhage. Jo-white matter interface is normal. Basal ganglia calcifications, abnormal in this age group. Skull and face: Calvarium and visualized facial bones are intact, without suspicious lesions. Sinuses: Visualized sinuses and mastoids are clear. IMPRESSION: No acute intracranial pathology. No sinusitis. No intraorbital mass. Basal ganglia calcifications, atypical in this age group. Differential is broad, including toxic, idiopathic, infectious or congenital or metabolic syndromes. Dictated by: Clement Romero M.D. on 04/07/2024 at 12:24 Approved by: Clement Romero M.D. on 04/07/2024 at 12:26
[2024-04-07] MEDS: SODIUM CHLORIDE 0.9% 1,000 ML 1000 ML IV (12:03)
--- NOTE | 2024-04-07 12:07 | ED_ITS ---
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 Patient states that she does not normally get headaches and has had a generalized throbbing headache particularly behind her left eye for the last week. Has not really taken any medications at home because she was not sure what we will work well with her antidepressant med ications. She states that 2 days ago she woke up with spreading redness of her left eye. Denies vision changes. Related Data Home Medications Medication Instructions Recorded Confirmed albuterol sulfate 90 mcg/actuation 1 puff inhalation DIRECTED 11/09/18 11/17/19 aerosol inhaler insulin glargine 100 unit/mL 0 unit SUBCUT DIRECTED 11/09/18 subcutaneous solution insulin lispro 100 unit/mL 0 unit SUBCUT DIRECTED 11/09/18 subcutaneous solution brimonidine 0.2 %-timolol 0.5 % 1 drp ophthalmic (eye) BID 11/17/19 11/17/19 eye drops (Combigan) lisinopril 10 mg tablet 10 mg PO DAILY 11/17/19 11/17/19 Previous Rx's Medication Instructions Recorded lidocaine 5 % topical patch 1 patch topical DAILY #15 ea 11/09/18 alprazolam 0.5 mg tablet (Xanax) 0.5 mg PO BID PRN anxiety #10 tabs 12/24/22 baclofen 10 mg tablet 10 mg PO TID muscle spasms #30 tabs 01/14/23 Allergies Allergy/AdvReac Type Severity Reaction Status Date / Time No Known Drug Allergies Allergy Verified 04/07/24 11:05 Patient History Medical History Type 1 diabetes Surgical History H/O eye surgery Social History Smoking Status: Former smoker Smoking Status: Former smoker alcohol intake frequency: holidays/special occasions only Substance Use Type: marijuana Exam Initial Vital Signs Initial Vital Signs: Vital Signs Temperature 97.6 F 04/07/24 10:55 Pulse Rate 78 04/07/24 10:55 Respiratory Rate 14 04/07/24 10:55 Blood Pressure 151/89 H 04/07/24 10:55 Pulse Oximetry 98 04/07/24 10:55 Oxygen Delivery Method Room Air 04/07/24 10:55 Const: Awake, alert, no acute distress, nontoxic appearing Eyes: PERRLA, EOMI, left subconjunctival hemorrhage medial aspect of left eye Skin: Warm, Dry, intact, no rashes Neuro: AO x3, CN II-XII grossly intact, moves all extremities Course Orders Ordered: Discontinued Medications Diphenhydramine HCl (Diphenhydramine 50 Mg/Ml Vial) 50 mg IV NOW ONE Stop: 04/07/24 11:53 Last Admin: 04/07/24 12:20 Dose: Not Given Documented By: GEORGE Sodium Chloride (Normal Saline 0.9%) 1,000 mls @ 1,000 mls/hr IV BOLUS ONE Stop: 04/07/24 12:51 Last Infusion: 04/07/24 13:07 Dose: Infused Documented By: Admin: 04/07/24 12:03 Dose: 1,000 mls/hr Documented By: GEORGE Metoclopramide HCl (Metoclopramide 10 Mg/2 Ml Inj) 10 mg IV NOW ONE Stop: 04/07/24 11:53 Last Admin: 04/07/24 12:20 Dose: Not Given Documented By: GEORGE Vital Signs Vital signs: Vital Signs - 8 hr 04/07/24 10:55 Temperature 97.6 F Pulse Rate 78 Respiratory Rate 14 Blood Pressure 151/89 H Pulse Oximetry 98 Oxygen Delivery Method Room Air MDM - Headache Differential Diagnosis Differential diagnosis: Likely migraine, tension headache and subarachnoid hemorrhage Imaging Data CT scan - head: Radiologist's Impression: PROCEDURE: CT HEAD/BRAIN WO CON INDICATIONS: MEZA, NEW PATTERN TECHNIQUE: Noncontrast 4.5 mm thick angled axial sections acquired from the foramen magnum to the vertex, with coronal and sagittal reformats. For radiation dose reduction, the following was used: automated exposure control, adjustment of mA and/or kV according to patient size. COMPARISON: None. FINDINGS: Image quality: Diagnostic. CSF spaces: Basal cisterns are patent. No extra-axial fluid collections. Ventricles are normal in size and shape. Brain: No midline shift. No intracranial masses or hemorrhage. Jo-white matter interface is normal. Basal ganglia calcifications, abnormal in this age group. Skull and face: Calvarium and visualized facial bones are intact, without suspicious lesions. Sinuses: Visualized sinuses and mastoids are clear. IMPRESSION: No acute intracranial pathology. No sinusitis. No intraorbital mass. Basal ganglia calcifications, atypical in this age group. Differential is broad, including toxic, idiopathic, infectious or congenital or metabolic syndromes. Dictated by: Clement Romero M.D. on 04/07/2024 at 12:24 Approved by: Clement Romero M.D. on 04/07/2024 at 12:26 MDM Narrative Medical decision making narrative: Well-appearing patient with headache and left-sided subconjunctival hemorrhage. No vision changes, pupils are equal, reactive, cornea clear. CT brain with basal ganglia calcifications that are nonspecific. Patient is neurologically intact, she declined any headache cocktail medications. Patient counseled on her CT results, recommended close PCP follow up. Tylenol and ibuprofen as needed for pain. Discharge Plan Departure Patient Disposition: Home Clinical Impression: Headache, Subconjunctival hemorrhage Instructions: DI for Headache Activity Restrictions/Additional Instructions: Your CT did not show any concerning findings to explain your headache. I recomm end following up with your primary care doctor if you continue to experience headaches. Taking Tylenol and staying hydrated can also help your symptoms. Prescriptions: No Action lisinopril 10 mg tablet 10 mg PO DAILY Patient Comments: take 1 tablet by mouth once daily Combigan 0.2-0.5 % drops 1 drp ophthalmic (eye) BID alprazolam [Xanax] 0.5 mg tablet 0.5 mg PO BID PRN (Reason: anxiety) Qty: 10 0RF Lantus U-100 Insulin 100 unit/mL solution 0 unit subcut DIRECTED insulin lispro [Humalog U-100 Insulin] 100 unit/mL solution 0 unit subcut DIRECTED albuterol sulfate [ProAir HFA] 90 mcg/actuation HFA aerosol inhaler 1 puff inhalation DIRECTED lidocaine 5 % adhesive patch,medicated 1 patch TOP DAILY Qty: 15 0RF Rx Instructions: leave on most painful area for 12 hrs baclofen 10 mg tablet 10 mg PO TID Qty: 30 1RF Referrals: Marisa Farooq ARNP [Primary Care Provider] - Stand Alone Forms: Patient Portal/API
[2024-04-07 13:34] VITALS: BP 157/83; PULSE 73; RESP 14; O2SAT 100
== END 2024-04-07 13:36 | disposition home or self-care (01) ==
PROVIDERS: Emergency Provider Emergency Medicine; PCP Nurse Practitioner
DX: R51.9 Headache, unspecified (principal); H11.32 Conjunctival hemorrhage, left eye
CPT/HCPCS: 36415; 70450; 96360; 99284; J1200; J2765